=== PATIENT | female | born 1960 | race Caucasian/White ===

== ENCOUNTER → 2024-11-24 07:00 | Outpatient (REF) | payer OTHER, SELFPAY ==
[2024-11-24 07:25] VITALS: BP 95/62; BP_SYST 73
[2024-11-24 09:10] VITALS: BP 101/60; BP_SYST 78
--- NOTE | 2024-11-24 09:12 | PTCARENOTE ---
IRAD note: confirmed with Dr. Romero. no antibiotic needed for Port placement for patient with Allergy to Penicillin.
[2024-11-24 09:15] VITALS: BP 95/56; BP_SYST 77
[2024-11-24 09:20] VITALS: BP 95/58; BP_SYST 75
[2024-11-24 09:30] VITALS: BP 98/60; BP_SYST 77
[2024-11-24 09:45] VITALS: BP 98/60
== END ==
LOC: RADI 07:00
PROVIDERS: ATTENDING PHYSICIAN Internal Medicine Hematology & Oncology
DX: C91.10 Chronic lymphocytic leukemia of B-cell type not having achieved remission (principal)
CPT/HCPCS: 36561; 76937; 77001; 99152; 99153; C1788

== ENCOUNTER → 2024-11-29 10:03 | Outpatient (REF) | payer OTHER, SELFPAY ==
[2024-11-29 10:48] LABS: Hematocrit 26.6 % (37.0-47.0); Mean Corp Hgb Conc. 30.1 g/dL (33.0-37.0); Mean Corpuscular Hgb 33.5 pg (27.0-31.0); Mean Corpuscular Volume 111.3 fL (81.0-99.0); Mean Platelet Volume 9.3 fL (7.4-10.4); Platelet Count 220 10^3/uL (130-400); Red Blood Cell Count 2.39 10^6/uL (4.20-5.40); Red Cell Dist. Width 14.3 % (11.5-14.5); White Blood Cell Count 67.9 10^3/uL (4.8-10.8)
[2024-11-29 11:49] LABS: ALT (SGPT) 30 U/L (0-35); AST (SGOT) 26 U/L (14-36); Albumin 3.7 g/dl (3.5-5.0); Alkaline Phosphatase 64 U/L (38-126); Blood Urea Nitrogen 31 mg/dl (7-17); Calcium 8.8 mg/dl (8.4-10.2); Carbon Dioxide 30 mmol/L (22-30); Chloride 100 mmol/L (98-107); Glucose 89 mg/dl (70-99); Potassium 4.9 mmol/L (3.5-5.1); Sodium 139 mmol/L (135-145); Total Bilirubin 0.5 mg/dl (0.2-1.3); Total Protein 5.3 g/dl (6.3-8.2); Uric Acid 3.4 mg/dl (2.5-6.2); eGFR > 60.00
[2024-11-29 13:21] LABS: % Immature Granulocytes 0.1 % (0-0.5); % Lymphocytes 96.4 % (20.5-51.1); % Monocytes 0.4 % (1.7-9.3); % Neutrophils 3.1 % (42.2-75.2); Absolute Immature Granulocytes 0.1 10^3/uL (0-0.05); Absolute Lymphocytes 65.4 10^3/uL (1.2-3.4); Absolute Monocytes 0.3 10^3/uL (0.1-0.6); Absolute Neutrophils 2.1 10^3/uL (1.4-6.5); Nucleated Red Blood Cells % 0 %
== END ==
LOC: REG 10:03
PROVIDERS: ATTENDING PHYSICIAN Internal Medicine Hematology & Oncology
DX: C91.10 Chronic lymphocytic leukemia of B-cell type not having achieved remission (principal); R59.0 Localized enlarged lymph nodes; D69.59 Other secondary thrombocytopenia; D63.8 Anemia in other chronic diseases classified elsewhere; D68.9 Coagulation defect, unspecified; R16.1 Splenomegaly, not elsewhere classified; R11.0 Nausea; D51.8 Other vitamin B12 deficiency anemias; D80.1 Nonfamilial hypogammaglobulinemia
CPT/HCPCS: 36415; 80053; 84550; 85025

== ENCOUNTER → 2024-12-01 08:35 | Outpatient (REF) | payer OTHER, SELFPAY ==
[2024-12-01 09:11] LABS: ALT (SGPT) 32 U/L (0-35); AST (SGOT) 23 U/L (14-36); Albumin 3.3 g/dl (3.5-5.0); Alkaline Phosphatase 57 U/L (38-126); Blood Urea Nitrogen 28 mg/dl (7-17); Calcium 8.1 mg/dl (8.4-10.2); Carbon Dioxide 27 mmol/L (22-30); Chloride 102 mmol/L (98-107); Glucose 130 mg/dl (70-99); Potassium 4.1 mmol/L (3.5-5.1); Sodium 138 mmol/L (135-145); Total Bilirubin 0.5 mg/dl (0.2-1.3); Total Protein 5.1 g/dl (6.3-8.2); Uric Acid 3.1 mg/dl (2.5-6.2); eGFR > 60.00
[2024-12-01 09:44] LABS: % Immature Granulocytes 0.4 % (0-0.5); % Lymphocytes 74.2 % (20.5-51.1); % Monocytes 0.3 % (1.7-9.3); % Neutrophils 25.1 % (42.2-75.2); Absolute Lymphocytes 5.3 10^3/uL (1.2-3.4); Absolute Neutrophils 1.8 10^3/uL (1.4-6.5); Hemoglobin 7.8 g/dL (12.0-16.0); Mean Corp Hgb Conc. 31.2 g/dL (33.0-37.0); Mean Corpuscular Hgb 35.3 pg (27.0-31.0); Mean Corpuscular Volume 113.1 fL (81.0-99.0); Mean Platelet Volume 9.3 fL (7.4-10.4); Nucleated Red Blood Cells % 0 %; Platelet Count 180 10^3/uL (130-400); Red Blood Cell Count 2.21 10^6/uL (4.20-5.40); Red Cell Dist. Width 15.3 % (11.5-14.5); White Blood Cell Count 7.1 10^3/uL (4.8-10.8)
== END ==
LOC: OIDL 08:35
PROVIDERS: ATTENDING PHYSICIAN Internal Medicine Hematology & Oncology
DX: C91.10 Chronic lymphocytic leukemia of B-cell type not having achieved remission (principal)
CPT/HCPCS: 80053; 84550; 85025

== ENCOUNTER 2024-12-04 07:44 | Outpatient (RCR) | payer OTHER, SELFPAY ==
[2024-11-16 12:39] LABS: Hematocrit 25.8 % (37.0-47.0); Hemoglobin 8.1 g/dL (12.0-16.0); Mean Corp Hgb Conc. 31.4 g/dL (33.0-37.0); Mean Corpuscular Hgb 35.5 pg (27.0-31.0); Mean Corpuscular Volume 113.2 fL (81.0-99.0); Mean Platelet Volume 9.7 fL (7.4-10.4); Platelet Count 219 10^3/uL (130-400); Red Blood Cell Count 2.28 10^6/uL (4.20-5.40); Red Cell Dist. Width 12.6 % (11.5-14.5); White Blood Cell Count 31.4 10^3/uL (4.8-10.8)
[2024-11-16 14:08] LABS: % Basophils 0.2 % (0-2); % Eosinophils 0.2 % (0-6); % Lymphocytes 95.1 % (20.5-51.1); % Neutrophils 3.5 % (42.2-75.2); Absolute Basophils 0.1 10^3/uL (0-0.2); Absolute Eosinophils 0.1 10^3/uL (0-0.7); Absolute Lymphocytes 29.9 10^3/uL (1.2-3.4); Absolute Monocytes 0.3 10^3/uL (0.1-0.6); Absolute Neutrophils 1.1 10^3/uL (1.4-6.5); Nucleated Red Blood Cells % 0.1 %
[2024-11-17 09:44] VITALS: BP 80/41
[2024-11-17 10:26] LABS: ALT (SGPT) 18 U/L (0-35); AST (SGOT) 19 U/L (14-36); Albumin 3.6 g/dl (3.5-5.0); Alkaline Phosphatase 66 U/L (38-126); Blood Urea Nitrogen 21 mg/dl (7-17); Calcium 8.9 mg/dl (8.4-10.2); Carbon Dioxide 26 mmol/L (22-30); Chloride 102 mmol/L (98-107); Glucose 97 mg/dl (70-99); Potassium 4.5 mmol/L (3.5-5.1); Sodium 140 mmol/L (135-145); Total Bilirubin 0.9 mg/dl (0.2-1.3); Total Protein 5.6 g/dl (6.3-8.2); eGFR > 60.00
[2024-11-17 10:55] VITALS: BP 80/41
[2024-11-17] MEDS: TYLENOL 650 MG PO (10:57)
[2024-11-17] MEDS: BENADRYL 25 MG PO (10:57)
[2024-11-17 10:58] LABS: Hepatitis B Surface Antigen Negative (Negative)
[2024-11-17 11:14] VITALS: BP 80/42
[2024-11-17 11:16] LABS: Hepatitis B Core Ab, Total Negative (Negative)
[2024-11-17 12:23] LABS: Hepatitis B Surface Antibody Indeterminate
[2024-11-17 12:58] VITALS: BP 82/47
[2024-12-04] VITALS (7 sets, daily range): BP systolic 86–91; BP diastolic 45–52
[2024-12-04] MEDS: TYLENOL 650 MG PO (08:24)
[2024-12-04] MEDS: BENADRYL 25 MG PO (08:24)
== END 2024-12-08 23:59 | disposition home or self-care (01) ==
LOC: OID 07:44
PROVIDERS: ATTENDING PHYSICIAN Internal Medicine Hematology & Oncology; FAMILY PHYSICIAN Family Medicine
DX: C91.10 Chronic lymphocytic leukemia of B-cell type not having achieved remission (principal)
CPT/HCPCS: 36415; 36430; 80053; 85025; 86704; 86706; 86850; 86900; 86901; 86920; 87340; P9016

== ENCOUNTER → 2024-12-06 09:56 | Outpatient (REF) | payer OTHER, SELFPAY ==
[2024-12-06 12:05] LABS: Absolute Lymphocytes 0.5 10^3/uL (1.2-3.4); Absolute Neutrophils 0.5 10^3/uL (1.4-6.5); Hematocrit 34.5 % (37.0-47.0); Hemoglobin 11.5 g/dL (12.0-16.0); Mean Corp Hgb Conc. 33.3 g/dL (33.0-37.0); Mean Corpuscular Hgb 33.5 pg (27.0-31.0); Mean Corpuscular Volume 100.6 fL (81.0-99.0); Mean Platelet Volume 9.7 fL (7.4-10.4); Nucleated Red Blood Cells % 0 %; Platelet Count 76 10^3/uL (130-400); Red Blood Cell Count 3.43 10^6/uL (4.20-5.40); Red Cell Dist. Width 18.5 % (11.5-14.5)
[2024-12-06 12:49] LABS: ALT (SGPT) 53 U/L (0-35); AST (SGOT) 24 U/L (14-36); Albumin 3.9 g/dl (3.5-5.0); Alkaline Phosphatase 65 U/L (38-126); Blood Urea Nitrogen 20 mg/dl (7-17); Calcium 8.7 mg/dl (8.4-10.2); Carbon Dioxide 28 mmol/L (22-30); Chloride 98 mmol/L (98-107); Glucose 93 mg/dl (70-99); Potassium 4.8 mmol/L (3.5-5.1); Sodium 135 mmol/L (135-145); Total Bilirubin 1.9 mg/dl (0.2-1.3); Total Protein 5.9 g/dl (6.3-8.2); eGFR > 60.00
[2024-12-06 14:15] LABS: Uric Acid 3.3 mg/dl (2.5-6.2)
== END ==
LOC: REG 09:56
PROVIDERS: ATTENDING PHYSICIAN Internal Medicine Hematology & Oncology; FAMILY PHYSICIAN Family Medicine
DX: C91.10 Chronic lymphocytic leukemia of B-cell type not having achieved remission (principal); R59.0 Localized enlarged lymph nodes; D69.59 Other secondary thrombocytopenia; D63.8 Anemia in other chronic diseases classified elsewhere; R16.1 Splenomegaly, not elsewhere classified; R11.0 Nausea; D51.8 Other vitamin B12 deficiency anemias; D80.1 Nonfamilial hypogammaglobulinemia
CPT/HCPCS: 36415; 80053; 84550; 85025

== ENCOUNTER → 2024-12-12 13:22 | Outpatient (REF) | payer OTHER, SELFPAY ==
[2024-12-12 14:56] LABS: ALT (SGPT) 31 U/L (0-35); AST (SGOT) 31 U/L (14-36); Albumin 3.2 g/dl (3.5-5.0); Alkaline Phosphatase 52 U/L (38-126); Blood Urea Nitrogen 22 mg/dl (7-17); Calcium 8.3 mg/dl (8.4-10.2); Carbon Dioxide 25 mmol/L (22-30); Chloride 98 mmol/L (98-107); Glucose 111 mg/dl (70-99); Potassium 4.2 mmol/L (3.5-5.1); Sodium 128 mmol/L (135-145); Total Bilirubin 1.2 mg/dl (0.2-1.3); eGFR > 60.00
[2024-12-12 15:47] LABS: % Eosinophils 3.4 % (0-6); % Lymphocytes 52.9 % (20.5-51.1); % Monocytes 1.1 % (1.7-9.3); % Neutrophils 42.6 % (42.2-75.2); Absolute Lymphocytes 0.5 10^3/uL (1.2-3.4); Absolute Neutrophils 0.4 10^3/uL (1.4-6.5); Hematocrit 26.7 % (37.0-47.0); Hemoglobin 8.7 g/dL (12.0-16.0); Mean Corp Hgb Conc. 32.6 g/dL (33.0-37.0); Mean Corpuscular Volume 101.1 fL (81.0-99.0); Mean Platelet Volume 9.6 fL (7.4-10.4); Nucleated Red Blood Cells % 0 %; Platelet Count 107 10^3/uL (130-400); Red Blood Cell Count 2.64 10^6/uL (4.20-5.40); Red Cell Dist. Width 17.3 % (11.5-14.5); White Blood Cell Count 0.9 10^3/uL (4.8-10.8)
== END ==
LOC: REG 13:22
PROVIDERS: ATTENDING PHYSICIAN Internal Medicine Hematology & Oncology; FAMILY PHYSICIAN Family Medicine
DX: C91.10 Chronic lymphocytic leukemia of B-cell type not having achieved remission (principal); R59.0 Localized enlarged lymph nodes; D69.59 Other secondary thrombocytopenia; D63.8 Anemia in other chronic diseases classified elsewhere; D68.9 Coagulation defect, unspecified; R16.1 Splenomegaly, not elsewhere classified; R11.0 Nausea; D51.8 Other vitamin B12 deficiency anemias; D80.1 Nonfamilial hypogammaglobulinemia
CPT/HCPCS: 36415; 80053; 84550; 85025

== ENCOUNTER → 2024-12-14 12:29 | Outpatient (REF) | payer OTHER, SELFPAY | LOC: RAD 12:29 | PROVIDERS: ATTENDING PHYSICIAN Nurse Practitioner Adult Health; FAMILY PHYSICIAN Family Medicine | DX: C91.10 Chronic lymphocytic leukemia of B-cell type not having achieved remission (principal); R59.0 Localized enlarged lymph nodes; D69.59 Other secondary thrombocytopenia; D63.8 Anemia in other chronic diseases classified elsewhere; D68.9 Coagulation defect, unspecified; R16.1 Splenomegaly, not elsewhere classified; R11.0 Nausea; D51.8 Other vitamin B12 deficiency anemias; D80.1 Nonfamilial hypogammaglobulinemia | CPT/HCPCS: 71046 ==

== ENCOUNTER 2024-12-15 22:37 | Inpatient (IN) | payer OTHER, SELFPAY ==
[2024-12-15 17:29] VITALS: BP 115/65
[2024-12-15] MEDS: TYLENOL 1000 MG PO (17:36)
[2024-12-15] MEDS: NSS 1000 IV (18:24)
[2024-12-15 18:37] LABS: Hematocrit 22.7 % (37.0-47.0); Hemoglobin 7.9 g/dL (12.0-16.0); Mean Corp Hgb Conc. 34.8 g/dL (33.0-37.0); Mean Corpuscular Hgb 33.8 pg (27.0-31.0); Mean Platelet Volume 9.6 fL (7.4-10.4); Platelet Count 129 10^3/uL (130-400); Red Blood Cell Count 2.34 10^6/uL (4.20-5.40); Red Cell Dist. Width 17.2 % (11.5-14.5); White Blood Cell Count 0.6 10^3/uL (4.8-10.8)
[2024-12-15 18:42] LABS: ALT (SGPT) 40 U/L (0-35); AST (SGOT) 32 U/L (14-36); Alkaline Phosphatase 61 U/L (38-126); Blood Urea Nitrogen 19 mg/dl (7-17); Calcium 8.2 mg/dl (8.4-10.2); Carbon Dioxide 21 mmol/L (22-30); Chloride 99 mmol/L (98-107); Glucose 105 mg/dl (70-99); Sodium 129 mmol/L (135-145); Total Bilirubin 1.2 mg/dl (0.2-1.3); Total Protein 4.8 g/dl (6.3-8.2); eGFR > 60.00
[2024-12-15] MEDS: MAXIPIME 2000 MG IV (18:43)
[2024-12-15 18:53] LABS: Procalcitonin < 0.05 ng/ml (0.0-0.25)
[2024-12-15 18:54] LABS: APTT 37.5 Sec (23.4-35.0); Lactic Acid 0.8 mmol/L (0.7-2.0)
[2024-12-15 18:56] VITALS: BP 104/58
[2024-12-15 18:58] VITALS: BMI 24.2
[2024-12-15 19:05] LABS: COVID-19 Antigen Negative (Negative)
[2024-12-15 19:33] LABS: Urine Bilirubin Negative (Negative); Urine Character Clear (Clear); Urine Glucose Negative (Negative); Urine Ketone Negative (Negative); Urine Nitrite Negative (Negative)
--- NOTE | 2024-12-15 19:33 | ED.GENMED ---
History of Present Illness
<Jose Montemayor Jr., PA-C - Last Filed: 12/15/24 21:13>
General
Chief Complaint: Fever
Source: patient and family
Exam Limitations: none
Time Seen by Provider: 12/15/24 18:05
Nursing documentation reviewed up to this point in time: agreed with
History of Present Illness
History of Present Illness:
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 Had an x-ray yesterday that showed some degree of bilateral infiltrates. She denies specific symptoms other
than feeling febrile and weak. Sent in by hematology for antibiotic therapy. Here patient is febrile in no distress other vital signs normal. White count of 0.6 slightly low sodium level 129 also low calcium level. Patient started on
broad-spectrum antibiotics
Review of Systems
<Jose Montemayor Jr., PA-C - Last Filed: 12/15/24 21:13>
Review of Systems
Allergies reviewed?: Yes
All Other Systems: ROS reviewed and negative except as documented in HPI and ROS
Phy Exam
<Jose Montemayor Jr., PA-C - Last Filed: 12/15/24 21:13>
Physical Exam
Physical Exam:
GENERAL: Alert , in no apparent distress
EYE: pupils equal and reactive
NECK: Supple, no significant adenopathy.
ENT: o/p clr, mmm.
CARDIAC: Regular rate and rhythm .
LUNGS: Clear breath sounds bilaterally, no acute respiratory distress, no wheezes/rales/rhonchi
ABDOMEN: Soft, without focal tenderness, no r/g, no cvat
NEUROLOGICAL: Alert and oriented, no focal neuro deficits
SKIN: Warm and dry, skin intact.
MUSCULOSKELETAL: No edema, well perfused.
PSYCH: Normal and appropriate interaction.
Sepsis
<Jose Montemayor Jr., PA-C - Last Filed: 12/15/24 21:13>
Sepsis Screening
Sepsis Assessment: Sepsis Ruled Out
Sepsis Screen
Sepsis Screen: Sepsis Ruled Out
Date: 12/15/24
Time: 21:13
Course
<Jose Montemayor Jr., PA-C - Last Filed: 12/15/24 21:13>
Orders/Labs/Results
Orders:
Orders
12/15/24 17:35
Acetaminophen [Tylenol] 1,000 mg PO NOW STA
Acetaminophen [Tylenol] 500 mg .ROUTE .STK-MED ONE
12/15/24 18:05
0.9% Sodium Chloride 1000 ml [Nss] 1,000 ml IV BOLUS
Cefepime HCl [Maxipime] 2,000 mg IV NOW STA
12/15/24 18:07
Electrocardiogram (*1) Urgent
Reason for Study: Other
Other Reason for Exam: sepsis
EKG- Treatment ONCE
12/15/24 18:18
COVID-19 Antigen Urgent
Source: Nasal Swab
Complete Blood Count/With Diff Urgent
Comprehensive Metabolic Panel Urgent
Lactic Acid Q4H
Comment: CANCEL 2nd LACTIC ACID IF 1st LACTIC ACID IS LESS THAN 2
PTT Urgent
Procalcitonin Urgent
PCT Algorithmm Indication: Respiratory
Blood Culture Q30M
DARREN Source: Blood/Venous
Specimen Description:
Influenza A+B Rapid Molecular Urgent
DARREN Source: Nasal Swab
Specimen Description:
12/15/24 18:38
Blood Culture Q30M
DARREN Source: Blood/Venous
Specimen Description:
12/15/24 19:25
Urinalysis Reflex To Culture Urgent
Date Specimen was Collected: 12/15/24
Time Specimen was Collected: 19:19
Urine Microscopic Reflex Cult Urgent
Urine Culture Urgent
DARREN Source: U
Specimen Description:
Date Specimen was Collected: 12/15/24
Time Specimen was Collected: 19:19
12/15/24 19:41
CT Chest PE Study Urgent
Comment:
Reason For Exam: sob, cancer hx
12/15/24 20:31
Vancomycin [Vancocin] 1,500 mg 0.9% Sodium Chloride 500 ml [Nss] 500 ml IV NOW
12/15/24 22:15
Lactic Acid Q4H
Comment: CANCEL 2nd LACTIC ACID IF 1st LACTIC ACID IS LESS THAN 2
Abnormal Lab Results
12/15/24 12/15/24
18:18 19:25
WBC 0.6 L* 10^3/uL
(4.8-10.8)
RBC 2.34 L 10^6/uL
(4.20-5.40)
Hgb 7.9 L g/dL
(12.0-16.0)
Hct 22.7 L %
(37.0-47.0)
MCH 33.8 H pg
(27.0-31.0)
RDW 17.2 H %
(11.5-14.5)
Plt Count 129 L D 10^3/uL
(130-400)
Absolute Neuts (auto) 0.2 L* 10^3/uL
(1.4-6.5)
Absolute Lymphs (auto) 0.3 L 10^3/uL
(1.2-3.4)
Absolute Monos (auto) 0.0 L 10^3/uL
(0.1-0.6)
Neutrophils % 37.5 L %
(42.2-75.2)
Lymphocytes % 57.1 H %
(20.5-51.1)
APTT 37.5 H Sec
(23.4-35.0)
Sodium 129 L mmol/L
(135-145)
Carbon Dioxide 21 L mmol/L
(22-30)
BUN 19 H mg/dl
(7-17)
Glucose 105 H mg/dl
(70-99)
Calcium 8.2 L mg/dl
(8.4-10.2)
ALT 40 H U/L
(0-35)
Total Protein 4.8 L g/dl
(6.3-8.2)
Albumin 3.0 L g/dl
(3.5-5.0)
Ur Occult Blood Reflex 4+ A
(Negative)
Urine Urobilinogen 2+ A
(Neg - 1+)
Leukocyte Esterase Rfl 1+ A
(Negative)
Urine RBC 16-20 A /HPF
(0-2)
Urine Bacteria (Reflex) Few A
(Negative)
Urine Albumin (Reflex) 2+ A
(Neg - Trace)
12/15/24 18:18
12/15/24 18:18
Vital Signs
Initial and Last Documented VS:
Initial Vital Signs
Temp Pulse Resp BP Pulse Ox
101.2 F H 97 16 115/65 98
12/15/24 17:29 12/15/24 17:29 12/15/24 17:29 12/15/24 17:29 12/15/24 17:29
Last Documented Vital Signs
Temp Pulse Resp BP Pulse Ox
98.7 F 84 17 104/58 97
12/15/24 19:45 12/15/24 18:56 12/15/24 18:56 12/15/24 18:56 12/15/24 18:56
<Donell Vásquez MD - Last Filed: 12/15/24 19:52>
Orders/Labs/Results
Orders:
Orders
12/15/24 17:35
Acetaminophen [Tylenol] 1,000 mg PO NOW STA
Acetaminophen [Tylenol] 500 mg .ROUTE .STK-MED ONE
12/15/24 18:05
0.9% Sodium Chloride 1000 ml [Nss] 1,000 ml IV BOLUS
Cefepime HCl [Maxipime] 2,000 mg IV NOW STA
12/15/24 18:07
Electrocardiogram (*1) Urgent
Reason for Study: Other
Other Reason for Exam: sepsis
EKG- Treatment ONCE
12/15/24 18:18
COVID-19 Antigen Urgent
Source: Nasal Swab
Complete Blood Count/With Diff Urgent
Comprehensive Metabolic Panel Urgent
Lactic Acid Q4H
Comment: CANCEL 2nd LACTIC ACID IF 1st LACTIC ACID IS LESS THAN 2
PTT Urgent
Procalcitonin Urgent
PCT Algorithmm Indication: Respiratory
Blood Culture Q30M
DARREN Source: Blood/Venous
Specimen Description:
Influenza A+B Rapid Molecular Urgent
DARREN Source: Nasal Swab
Specimen Description:
12/15/24 18:38
Blood Culture Q30M
DARREN Source: Blood/Venous
Specimen Description:
12/15/24 19:25
Urinalysis Reflex To Culture Urgent
Date Specimen was Collected: 12/15/24
Time Specimen was Collected: 19:19
Urine Microscopic Reflex Cult Urgent
Urine Culture Urgent
DARREN Source: U
Specimen Description:
Date Specimen was Collected: 12/15/24
Time Specimen was Collected: 19:19
12/15/24 19:41
CT Chest PE Study Urgent
Comment:
Reason For Exam: sob, cancer hx
12/15/24 20:31
Vancomycin [Vancocin] 1,500 mg 0.9% Sodium Chloride 500 ml [Nss] 500 ml IV NOW
12/15/24 22:15
Lactic Acid Q4H
Comment: CANCEL 2nd LACTIC ACID IF 1st LACTIC ACID IS LESS THAN 2
Abnormal Lab Results
12/15/24 12/15/24
18:18 19:25
WBC 0.6 L* 10^3/uL
(4.8-10.8)
RBC 2.34 L 10^6/uL
(4.20-5.40)
Hgb 7.9 L g/dL
(12.0-16.0)
Hct 22.7 L %
(37.0-47.0)
MCH 33.8 H pg
(27.0-31.0)
RDW 17.2 H %
(11.5-14.5)
Plt Count 129 L D 10^3/uL
(130-400)
Absolute Neuts (auto) 0.2 L* 10^3/uL
(1.4-6.5)
Absolute Lymphs (auto) 0.3 L 10^3/uL
(1.2-3.4)
Absolute Monos (auto) 0.0 L 10^3/uL
(0.1-0.6)
Neutrophils % 37.5 L %
(42.2-75.2)
Lymphocytes % 57.1 H %
(20.5-51.1)
APTT 37.5 H Sec
(23.4-35.0)
Sodium 129 L mmol/L
(135-145)
Carbon Dioxide 21 L mmol/L
(22-30)
BUN 19 H mg/dl
(7-17)
Glucose 105 H mg/dl
(70-99)
Calcium 8.2 L mg/dl
(8.4-10.2)
ALT 40 H U/L
(0-35)
Total Protein 4.8 L g/dl
(6.3-8.2)
Albumin 3.0 L g/dl
(3.5-5.0)
Ur Occult Blood Reflex 4+ A
(Negative)
Urine Urobilinogen 2+ A
(Neg - 1+)
Leukocyte Esterase Rfl 1+ A
(Negative)
Urine RBC 16-20 A /HPF
(0-2)
Urine Bacteria (Reflex) Few A
(Negative)
Urine Albumin (Reflex) 2+ A
(Neg - Trace)
12/15/24 18:18
12/15/24 18:18
Vital Signs
Initial and Last Documented VS:
Initial Vital Signs
Temp Pulse Resp BP Pulse Ox
101.2 F H 97 16 115/65 98
12/15/24 17:29 12/15/24 17:29 12/15/24 17:29 12/15/24 17:29 12/15/24 17:29
Last Documented Vital Signs
Temp Pulse Resp BP Pulse Ox
98.7 F 84 17 104/58 97
12/15/24 19:45 12/15/24 18:56 12/15/24 18:56 12/15/24 18:56 12/15/24 18:56
<Jose Montemayor Jr., PA-C - Last Filed: 12/15/24 21:13>
MDM/Problems Addressed
MDM/Problems Addressed:
64-year-old female presenting to the emergency department today with concerns of fever starting yesterday. An outpatient x-ray with concerning features of potential pneumonia. 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
immunocompromise state with CLL. Here she generally well-appearing with normal vital signs other than her elevated temperature. Was given Tylenol started on IV antibiotics blood cultures urine culture sent. CTA performed of the chest concern she
does have some shortness of breath. This showed findings potentially consistent with pneumonia no evidence of PE. Plan to admit for further monitoring.
<Jose Montemayor Jr., PA-C - Last Filed: 12/15/24 21:13>
*Critical Care Note
Total Time (30-74mins, 75-104mins- exclusive of procedures): Not Applicable
ED Attending Note
<Jose Montemayor Jr., PA-C - Last Filed: 12/15/24 21:13>
-
Portions of this chart may have been created with voice recognition software.� Occasional wrong word or��sound alike� substitutions may have occurred due to the inherent limitations of voice recognition software.
<Donell Vásquez MD - Last Filed: 12/15/24 19:52>
ED Attending Note
Patient seen and examined by attending physician: Yes
I performed the substantive portion of visit, reviewed & personally made and approve the management plan that is documented in note by myself or KARAN.: Yes
ED Attending Note:
64-year-old female with a history of CLL presents with shortness of breath starting 2 to 3 days ago. Did respond to her home inhaler. Fevers. Some achiness. No pleuritic pain abdominal pain urinary symptoms etc.
On exam patient is nontoxic in no distress. Warm and dry. Perfusing well. Lungs are clear. Heart regular rate and rhythm. Port right upper chest wall appears normal. Abdomen soft and nontender. Warm and dry. Grossly nonfocal.
Impression is neutropenia ongoing fever. She has having some pain at her port site although it appears within normal limits. We will get a CT perfusion for her shortness of breath. Admit for IV antibiotics pending cultures.
Discharge Plan
Departure
Patient Disposition: Admit
Date of Disposition: 12/15/24
Time of Disposition: 21:04
Admit to: Med/Surg
Admit to doctor: Dlyan
Presentation/result/management discussed w/ accepting MD/DO: Hospitalist
Patient with high blood pressure during this ER visit?: No
Condition: Good
Covid-19: Not Applicable
Discharge Problem:
Chronic lymphocytic leukemia, Neutropenia, Fever, Pneumonia
Prescriptions:
No Action
atorvastatin [Lipitor] 40 mg Tablet
40 mg PO HS
cyanocobalamin (vitamin B-12) [Vitamin B-12] 2,500 mcg Tablet, Sublingual
2,500 mcg SUBLINGUAL DAILY
carvedilol 3.125 mg Tablet
3.125 mg PO BID
levothyroxine [Synthroid] 88 mcg Tablet
88 mcg PO DAILY
sertraline 25 mg Tablet
25 mg PO HS
albuterol sulfate [ProAir HFA] 90 mcg/actuation Hfa Aerosol Inhaler
2 puff INHALATION R Q6HPRN PRN (Reason: asthma)
allopurinol 300 mg Tablet
300 mg PO DAILY
acetaminophen [Tylenol] 325 mg Tablet
650 mg PO Q6HPRN PRN (Reason: mild pain)
aspirin 81 mg Tablet,Delayed Release (Dr/Ec)
81 mg PO DAILY
fluticasone furoate-vilanterol [Breo Ellipta] 100-25 mcg/dose Blister With Device
1 inh INHALATION R DAILYPRN PRN (Reason: sob)
levofloxacin 500 mg Tablet
500 mg PO DAILY
Patient Comments:
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
Interventions
Interventions:
*Risk Screen - Suicide Last Done: 12/15/24 17:32
*General Assessment Last Done: 12/15/24 18:47
*Neglect/Abuse Screening Last Done: 12/15/24 17:32
ED- Fall Risk Assessment Last Done: 12/15/24 18:49
*ED COVID-19 Vaccine History Last Done: 12/15/24 18:47
ED- Neurological Assessment Last Done: 12/15/24 19:22
ED-Skin Assessment Last Done: 12/15/24 18:50
Discharge Date and Time
Print Language: SYRIAC
[2024-12-15 20:02] LABS: % Eosinophils 3.6 % (0-6); % Lymphocytes 57.1 % (20.5-51.1); % Monocytes 1.8 % (1.7-9.3); % Neutrophils 37.5 % (42.2-75.2); Absolute Lymphocytes 0.3 10^3/uL (1.2-3.4); Absolute Neutrophils 0.2 10^3/uL (1.4-6.5); Nucleated Red Blood Cells % 0 %
[2024-12-15 20:14] LABS: Urine Red Blood Cell 16-20 /HPF (0-2); Urine Squamous Cell 21-25 /LPF (Few)
[2024-12-15 20:15] LABS: Urine Bacteria Few (Negative)
[2024-12-15 20:29] LABS: Urine Color Amber
[2024-12-15 20:30] LABS: Urine Albumin 2+ (Neg - Trace); Urine Leukocyte 1+ (Negative); Urine Occult Blood 4+ (Negative); Urine Specific Gravity 1.015 (<1.030); Urine Urobilinogen 2+ (Neg - 1+)
[2024-12-15] MEDS: VANCOCIN 530 MG IV (20:59)
--- NOTE | 2024-12-15 21:06 | HPS.HSE ---
Addendum entered and electronically signed by Callum Richardson DO 12/15/24 23:10:
Patient seen and examined independently. Agree with findings and plan as set forth by JOCELIN Espitia.
Patient is a 64y F with PMH significant for CLL having recently started targeted immunotherapy (3 weeks ago) who presents to ED complaining of recent fevers at home. Patient reports some increased SOB 2 days ago - better with use of her rescue
inhaler. She noted intermittent fevers at home - max of 101. Intermittent nausea without emesis - mostly after eating. No other focal complaints. No cough. No known sick contacts.
Patient had CXR done as an outpatient yesterday and was started on levofloxacin for findings of multifocal pneumonia. Today she had another fever and presented to the ED for evaluation.
Ass:
Neutropenic Fever
Multifocal Pneumonia
CLL on Immunotherapy
ASCVD
Benign Hypertension
Hypothyroidism
Asthma
Depression
Plan:
Admit for further evaluation and treatment.
Continue abx with Vanco / Zosyn for now.
Neutropenic precautions.
Follow fever curve, culture data, cell counts / ANC, etc.
ID and Hematology evaluations for additional recommendations.
Continue other outpatient medications.
Monitor for any new / worsening symptoms.
Original Note:
Family Physician
-
Family Physician:
Chief Complaint
-
fever
History of Present Illness
Patient is a 64-year-old female with past medical history significant for CLL, hypothyroidism, hyperlipidemia, hypertension, asthma, and depression who presented to [facility] for evaluation of fever. Patient states that she started with
increased intermittent shortness of breath on Wednesday that resolved with use of inhaler. Yesterday she then started with intermittent fever with a T max of 101. She states she has felt nauseous intermittently. She denies any chills, cough, chest
pain, vomiting, constipation, diarrhea and urinary.
Medical History
Past Medical History
Past Medical History: Reports Other
Additional Past Medical History:
CLL
hypothyroidism
hyperlipidemia
hypertension
asthma
depression
Hx ME with sent placement
Past Surgical History: Reports Other
Additional Past Surgical History:
tonsillectomy
salpingostomy
appendectomy
cardiac stent
Social History
Tobacco: Non-smoker
Alcohol: None
Drug: None
Personal:
Living: With Family
Employment: Not Employed
Family History
Family History: Not pertinent
Allergies / Home Medications
Allergies reflects when Allergies were last updated in [email or web address].
Home Medications with original date entered in [email or web address]
Allergy/Medication List:
Allergies
Allergy/AdvReac Type Severity Reaction Status Date / Time
Penicillins Allergy Hives Verified 12/15/24 20:29
shrimp Allergy Hives Verified 12/15/24 17:32
Home Medications
albuterol sulfate 90 mcg/actuation aerosol inhaler 2 puff inhalation R Q6HPRN PRN asthma 11/17/24
atorvastatin 40 mg tablet (Lipitor) 40 mg PO HS 11/17/24
carvedilol 3.125 mg tablet 3.125 mg PO BID 11/17/24
cyanocobalamin (vitamin B-12) 2,500 mcg sublingual tablet (Vitamin B-12) 2,500 mcg sublingual DAILY 11/17/24
levothyroxine 88 mcg tablet (Synthroid) 88 mcg PO DAILY 11/17/24
sertraline 25 mg tablet 25 mg PO HS 11/17/24
allopurinol 300 mg tablet 300 mg PO DAILY 12/04/24
acetaminophen 325 mg tablet (Tylenol) 650 mg PO Q6HPRN PRN mild pain 12/15/24
aspirin 81 mg tablet,delayed release 81 mg PO DAILY 12/15/24
fluticasone furoate 100 mcg-vilanterol 25 mcg/dose inhalation powder (Breo Ellipta) 1 inh inhalation R DAILYPRN PRN sob 12/15/24
levofloxacin 500 mg tablet 500 mg PO DAILY 12/15/24
Review of Systems
-
History Source: Patient
Constitutional: Reports No Symptoms
EENT: Reports No Symptoms
Respiratory: Reports Other (intermittent shortness of breath )
Cardiac: Reports No Symptoms
Abdomen/GI: Reports Nausea
: Reports No Symptoms
Musculoskeletal: Reports No Symptoms
Skin: Reports No Symptoms
Neurological: Reports No Symptoms
Endocrine: Reports No Symptoms
Hematologic/Lymphatic: Reports No Symptoms
Psych: Reports No Symptoms
Physical Exam
Vital Signs
Vital Signs
Temp Pulse Resp BP Pulse Ox
98.7 F 84 17 104/58 97
12/15/24 19:45 12/15/24 18:56 12/15/24 18:56 12/15/24 18:56 12/15/24 18:56
Physical Exam
General: Well Developed, Well Nourished, No Apparent Distress, Comfortable and Conversant
HEENT: NormoCephalic, Moist mucous membranes, Atraumatic, [place] Conjunctivae, Nose Appears Normal and Ears Appear Normal
Respiratory: Clear and Non Labored Respirations
Cardiac: S1/S2 and Regular Rhythm; No Murmur, Rub or Gallop
Breast: Deferred by me
GI: Soft, Non Tender, Non Distended and Normal Bowel Sounds; No Organomegaly
Rectal: Deferred by Provider
Genito-urinary: Deferred by me
Musculoskeletal: No Clubbing, No Cyanosis and No Edema
Skin: Warm and IV/Catheter Site; No Rash
Neuro: Awake, Alert, AO x 3 and Nonfocal/grossly intact
Psych: Calm and Intact Judgment/Insight
Laboratory Results
-
12/15/24 18:18
12/15/24 18:18
Laboratory Results
APTT 37.5 Sec (23.4-35.0) H 12/15/24 18:18
Lactic Acid 0.8 mmol/L (0.7-2.0) 12/15/24 18:18
Total Bilirubin 1.2 mg/dl (0.2-1.3) 12/15/24 18:18
AST 32 U/L (14-36) 12/15/24 18:18
ALT 40 U/L (0-35) H 12/15/24 18:18
Alkaline Phosphatase 61 U/L (38-126) 12/15/24 18:18
Data Reviewed
-
CT Scan: Report Reviewed by me (Chest: No CTA evidence for an acute pulmonary thromboembolism. Diffuse bilateral patchy pulmonary parenchymal and reticulonodular opacities concerning for pneumonia or other atypical infectious process.)
Medical Tests (Nuc Med, Echo, EKG etc): Report Reviewed by me (EKG: NORMAL SINUS RHYTHM)
Lab Data: Labs Reviewed by me (WBC 0.6, Hgb 7.9, Hct 22.7, Na+ 129, )
Impression/Plan
-
IMPRESSION/PLAN:
#neutropenic fever
WBC 0.[address]: No CTA evidence for an acute pulmonary thromboembolism.
Diffuse bilateral patchy pulmonary parenchymal and reticulonodular opacities concerning for pneumonia or other atypical infectious process.
UA: does not appear to be UTI
Urine Cx: pending
Influenza & Covid: negative
- admit to med/surg
- IV Vanco and Cefepime
- supportive care
- consult ID
#CLL
follows with [place]
#hypothyroidism
- continue hypothyroidism
#hyperlipidemia
- continue atorvastatin
#hypertension
- continue carvedilol
#asthma
- continue Breo Ellipta
#depression
- continue sertraline
#Hx ME with sent placement
- continue aspirin
Code status: Full code
DVT prophylaxis: SCDs
[2024-12-15 21:31] LABS: Lactic Acid < 0.5 mmol/L (0.7-2.0)
[2024-12-15 22:34] VITALS: BP 90/57
[2024-12-15 23:50] VITALS: BP 92/59
[2024-12-15 23:57] VITALS: BMI 20.5
[2024-12-15] MEDS: LIPITOR PO (23:59)
[2024-12-15] MEDS: ZOLOFT PO (23:59)
[2024-12-16] MEDS: MAXIPIME 2000 MG IV ×3 (01:54→17:54)
[2024-12-16] MEDS: STERILE WATER FOR INJECTION 10 ML IV ×3 (01:55→17:54)
--- NOTE | 2024-12-16 04:49 | CON.ONC ---
Impression
Impression
Progressive stage 0 CLL s/p C1 d1/2 obinutuzumab /(venetoclax)
Plan
Plan
transfuse irradiated /leudodepleted pRBCs as clinically indicated-- maintain antibiotics pending recovery CBC --CSF ordered--daily CBC-- d/c allopurinol ( no further risk CTS)
Patient History
History of Present Illness
64-year-old white female with a 10+ year history of stage 0 CLL w/ favorable cytogenetics ( del 13q14) noted only for elevated lymphocytosis without anemia or thrombocytopenia transferred care to Dr. Álavrez for which she maintained observation.
She noted recurrent sinopulmonary infections over the prior year as well as progressive anemia and thrombocytopenia. CT scans of the chest abdomen and pelvis performed in July 2024 noted mild splenomegaly with nonspecific upper abdominal
adenopathy and mild bronchiolitis. She was evaluated for a second opinion at the [facility] for which bone marrow biopsy was recommended w/ subsequent initiation of venetoclax/obinutuzumab given progression of splenomegaly and
doubling of lymphocytosis <6months and B symptoms. BMBX 09/15/2024 noted 60% normocellular marrow involved by 95% CLL w/o cytogenetic or molecular progression. She received initial split dose over 2 days beginning 11/30/2024. She was scheduled for
day 8 therapy when she was found to be neutropenic for which day 8 therapy was withheld. She subsequently developed fever to 101 prompting ER evaluation and admission.
Past-Medical/Surgical History
asthma/CAD s/p stent/hypothyroid
Patient Medication
�Medication �Instructions �Recorded �Confirmed �Last Taken �Type
albuterol sulfate 90 mcg/actuation 2 puff inhalation R Q6HPRN PRN 11/17/24 12/15/24 Unknown History
aerosol inhaler asthma
atorvastatin 40 mg tablet (Lipitor) 40 mg PO HS 11/17/24 12/15/24 12/14/24 History
carvedilol 3.125 mg tablet 3.125 mg PO BID 01/09/0112/15/24 12/15/24 History
cyanocobalamin (vitamin B-12) 2,500 mcg sublingual DAILY 11/17/24 12/15/24 12/15/24 History
2,500 mcg sublingual tablet
(Vitamin B-12)
levothyroxine 88 mcg tablet 88 mcg PO DAILY 11/17/24 12/15/24 12/15/24 History
(Synthroid)
sertraline 25 mg tablet 25 mg PO HS 11/17/24 12/15/24 12/14/24 History
allopurinol 300 mg tablet 300 mg PO DAILY 12/04/24 12/15/24 12/15/24 History
acetaminophen 325 mg tablet 650 mg PO Q6HPRN PRN mild pain 12/15/24 12/15/24 Unknown History
(Tylenol)
aspirin 81 mg tablet,delayed 81 mg PO DAILY 12/15/24 12/15/24 12/15/24 History
release
fluticasone furoate 100 1 inh inhalation R DAILYPRN PRN sob 12/15/24 12/15/24 Unknown History
mcg-vilanterol 25 mcg/dose
inhalation powder (Breo Ellipta)
levofloxacin 500 mg tablet 500 mg PO DAILY 12/15/24 12/15/24 12/15/24 History
Active Medications
Generic Name Dose Route Start Last Admin
Trade Name Freq PRN Reason Stop Dose Admin
Acetaminophen 650 mg 12/16/24 04:36
Acetaminophen 325 Mg Tablet PO 01/13/25 04:35
Q6HPRN PRN
mild pain/ fever>100.5F
Albuterol 2 puff 12/15/24 23:41
Albuterol Hfa [90 Mcg/Dose] Inhaler INH
R Q6HPRN PRN
asthma
Protocol
Allopurinol 300 mg 12/16/24 08:00
Allopurinol 300 Mg Tablet PO 01/13/25 07:59
DAILY NAJMA
Aspirin 81 mg 12/16/24 08:00
Aspirin 81 Mg (Enteric Coated) Tablet PO 01/13/25 07:59
DAILY NAJMA
Atorvastatin Calcium 40 mg 12/15/24 23:41 12/15/24 23:59
Atorvastatin (Lipitor) 40 Mg Tablet PO 01/12/25 23:40 Not Given
HS NAJMA
Budesonide/Formoterol Fumarate 2 puff 12/15/24 23:48
Symbicort Inhaler 80/4.5 INH 01/12/25 23:47
R BIDPRN PRN
sob
Carvedilol 3.125 mg 12/16/24 08:00
Carvedilol 3.125 Mg Tablet PO 01/13/25 07:59
BID NAJMA
Cefepime HCl 2,000 mg 12/16/24 02:00 12/16/24 01:54
Cefepime Hcl 2,000 Mg/12.5 Ml Vial IV 2,000 mg
Q8H NAJMA Administration
Cyanocobalamin 2,500 mcg 12/16/24 08:00
Cyanocobalamin 1,000 Mcg Tablet PO 01/13/25 07:59
DAILY NAJMA
Vancomycin HCl 1 each/ Device 0 mls @ 0 mls/hr 12/15/24 23:41
IV
PER PROTOCOL NAJMA
As Directed
Levothyroxine Sodium 88 mcg 12/16/24 06:00
Levothyroxine 88 Mcg Tablet PO 01/13/25 05:59
DAILY @ 0600 NAJMA
Sertraline HCl 25 mg 12/15/24 23:41 12/15/24 23:59
Sertraline 25 Mg Tablet PO 01/12/25 23:40 Not Given
HS NAJMA
Sodium Chloride 0 flush 12/15/24 23:00
Sodium Chloride 0.9% (Flush) Syringe IV 01/12/25 22:59
PER PROTOCOL NAJMA
Sterile Water 10 ml 12/16/24 02:00 12/16/24 01:55
Sterile Water For Injection 10 Ml Vial IV 01/13/25 01:59 10 ml
Q8H NAJMA Administration
Review of Systems
-
History Source: Patient
All Other Systems: Reviewed and Negative
Physical Exam
-
General: Well Developed and No Apparent Distress
HEENT: Moist Mucous Membranes
Cardiology: Normal Sinus Rhythm
Pulmonary: Clear
GI: Soft and Normal Bowel Sounds
Musculoskeletal: No Clubbing, No Cyanosis and No Edema
Extremities: Pulses Present
Neurology: Non Focal
Hematologic / Lymphatic: Lymphadenopathy
Psych: Calm
Labs
Lab Results
WBC 0.6 10^3/uL (4.8-10.8) L* 12/15/24 18:18
RBC 2.34 10^6/uL (4.20-5.40) L 12/15/24 18:18
Hgb 7.9 g/dL (12.0-16.0) L 12/15/24 18:18
Hct 22.7 % (37.0-47.0) L 12/15/24 18:18
MCV 97.0 fL (81.0-99.0) 12/15/24 18:18
MCH 33.8 pg (27.0-31.0) H 12/15/24 18:18
MCHC 34.8 g/dL (33.0-37.0) 12/15/24 18:18
RDW 17.2 % (11.5-14.5) H 12/15/24 18:18
Plt Count 129 10^3/uL (130-400) L D 12/15/24 18:18
MPV 9.6 fL (7.4-10.4) 12/15/24 18:18
Abs Immat Gran (auto) 0.0 10^3/uL (0-0.05) 12/15/24 18:18
Absolute Neuts (auto) 0.2 10^3/uL (1.4-6.5) L* 12/15/24 18:18
Absolute Lymphs (auto) 0.3 10^3/uL (1.2-3.4) L 12/15/24 18:18
Absolute Monos (auto) 0.0 10^3/uL (0.1-0.6) L 12/15/24 18:18
Absolute Eos (auto) 0.0 10^3/uL (0-0.7) 12/15/24 18:18
Absolute Basos (auto) 0.0 10^3/uL (0-0.2) 12/15/24 18:18
Immature Gran % 0.0 % (0-0.5) 12/15/24 18:18
Neutrophils % 37.5 % (42.2-75.2) L 12/15/24 18:18
Lymphocytes % 57.1 % (20.5-51.1) H 12/15/24 18:18
Monocytes % 1.8 % (1.7-9.3) 12/15/24 18:18
Eosinophils % 3.6 % (0-6) 12/15/24 18:18
Basophils % 0.0 % (0-2) 12/15/24 18:18
Creatinine 0.6 mg/dL (0.6-1.0) 12/15/24 18:18
Vital Signs
Vital Signs
Temp Pulse Resp BP Pulse Ox
98.3 F 81 18 90/57 97
12/16/24 02:26 12/15/24 22:34 12/15/24 22:34 12/15/24 22:34 12/15/24 22:34
[2024-12-16] MEDS: TYLENOL 650 MG PO ×2 (04:54→23:46)
[2024-12-16 05:23] LABS: Hematocrit 19.4 % (37.0-47.0); Hemoglobin 6.7 g/dL (12.0-16.0); Mean Corp Hgb Conc. 34.5 g/dL (33.0-37.0); Mean Corpuscular Hgb 33.8 pg (27.0-31.0); Mean Platelet Volume 9.7 fL (7.4-10.4); Platelet Count 112 10^3/uL (130-400); Red Blood Cell Count 1.98 10^6/uL (4.20-5.40); Red Cell Dist. Width 17.2 % (11.5-14.5); White Blood Cell Count 0.5 10^3/uL (4.8-10.8)
[2024-12-16 05:32] LABS: ALT (SGPT) 29 U/L (0-35); AST (SGOT) 25 U/L (14-36); Albumin 2.1 g/dl (3.5-5.0); Alkaline Phosphatase 47 U/L (38-126); Blood Urea Nitrogen 16 mg/dl (7-17); Calcium 7.4 mg/dl (8.4-10.2); Carbon Dioxide 23 mmol/L (22-30); Chloride 108 mmol/L (98-107); Estimated Creatinine Clearance 85 ml/min; Glucose 106 mg/dl (70-99); Potassium 3.7 mmol/L (3.5-5.1); Sodium 135 mmol/L (135-145); Total Bilirubin 0.7 mg/dl (0.2-1.3); eGFR > 60.00
[2024-12-16] MEDS: SYNTHROID 88 MCG PO (05:34)
--- NOTE | 2024-12-16 06:21 | W.PN.UPDATE ---
Update Note
Progress Note Update
Hgb 6.7/19.4, Type and screen ordered. Patient seen Consent obtained. states she felt slight dizzy and SOB in the bathroom. BP soft 90's/ 59 81, 18, 97%. Fall precautions advised. will order 1 unit PRBC's.
--- NOTE | 2024-12-16 07:20 | PHA.VAN.IN ---
Assessment
- Assessment
Renal Function: Appears similar to baseline
Maximum Temperature: 101.2 - 12/15/24 17:29
Concomitant Antimicrobials: cefepime
AUC Dosing Plan
- Dosing Variables
Dosing Weight (kg): 56
Dosing CrCl (ml/min): 85
Vd coefficient (L/kg): 0.7
- Empiric Dosing
Initial / Loading Dose: 1500 mg - given 12/15/24 ~2100
Maintenance Regimen: 750 mg q12h to start AM 12/16/24
Estimated AUC (mcg*h/mL): 530
Estimated Peak (mcg*h/mL): 32.3
Estimated Trough (mcg/ml): 14.1
Estimated Half Life (H): 9.2
- Monitoring
No levels ordered at this time: consider levels after evening dose Wednesday
Pharmacokinetics Vancomycin I
- -
Patient Age: 64
Patient Sex: Female
Vancomycin Day #: 1
Indication: Pulmonary/Respiratory
Requesting Provider: Dmitriy
Pertinent Antimicrobial Allergies:
Penicillins ->hives
Height / Weight:
Height 5 ft 5 in
Actual Weight 55.973 kg
Pertinent Past Medical History: CLL on targeted immunotherapy
- Vital Signs / Lab Results
Temp Pulse Resp BP Pulse Ox
98.3 F 81 18 92/59 97
12/16/24 02:26 12/15/24 22:34 12/15/24 22:34 12/15/24 23:50 12/15/24 22:34
Lab Results - Hematology
12/15/24 12/16/24
18:18 04:55
WBC 0.6 L* 0.5 L*
Lab Results - Chemistry
12/15/24 12/16/24
18:18 04:55
BUN 19 H 16
Creatinine 0.6 0.6
Estimated Creat Clear 85
Albumin 3.0 L 2.1 L
12/15/24 12/15/24
18:18 20:57
Lactic Acid 0.8 < 0.5 L
Lab Results - Urine
12/15/24
19:25
Urine Nitrite (Reflex) Negative
Leukocyte Esterase Rfl 1+ A
Urine WBC (Reflex) 3-5
Ur Squamous Epith Cells 21-25
Urine Bacteria (Reflex) Few A
Microbiology Results
12/15/24 18:18 Influenza Types A & B ([facility]) - Final
Nasal Swab Negative for Influenza A & B, NAAT
Negative results must be combined with clinical observations
and patient history.
Nucleic Acid Amplification test (NAAT)performed on the
[employer] platform.
[2024-12-16 08:09] VITALS: BP 102/69
[2024-12-16] MEDS: ASPIR LOW (ENTERIC COATED) 81 MG PO (08:11)
[2024-12-16] MEDS: VANCOCIN 150 IV ×2 (08:12→17:54)
[2024-12-16] MEDS: VITAMIN B-12 2500 MCG PO (08:12)
[2024-12-16] MEDS: COREG 3.125 MG PO ×2 (08:12→19:45)
[2024-12-16] MEDS: ZYLOPRIM 300 MG PO (08:13)
--- NOTE | 2024-12-16 09:44 | CON.ID ---
Consultation
-
Date/Time Consultation Requested: December 15, 2024 5521
Date/Time Consultation Performed: December 16, 2024 0266
Requesting Provider: JOCELIN Espitia
Performing Provider: Dr. Jessica Beverly
Reason for Consultation: Neutropenic fever, pneumonia
Chief Complaint / Past History
Chief Complaint
Fever
History of Present Illness
64F hx of HTN, CAD, asthma, CLL received first dose venetoclax/obinutuzumab on 11/30/24 then developed neutropenia. On Wednesday she had significant shortness of breath for which she took inhalers that evening with resolution of the shortness of
breath. However the next day she had fever and chills up to 101. She came to the ED yesterday. Temperature 101.2, absolute neutrophil count 200. Chest CT showed diffuse bilateral patchy pulm parenchymal and reticulonodular opacities. She is
currently on cefepime and vancomycin. Patient reports no cough. Shortness of breath is mild with activity. No runny nose or sore throat. No headache. Positive mild nausea without vomiting, abdominal pain or diarrhea. No urine symptoms. No
back pain. No rash. No ill contacts. No recent travel. No pets. 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
Past History
Additional Past Medical History:
CLL, started venetoclax/obinutuzumab 11/30/24
Hypertension
Hypothyroidism
Asthma
CAD status post stent
Port placement 11/2024
Appendectomy
Allergy History:
Penicillins Allergy (Verified 12/15/24 20:29)
Hives
shrimp Allergy (Verified 12/15/24 17:32)
Hives
Medications Reviewed: Yes
Current Antibiotics:
Vancomycin
Cefepime
Social History
Tobacco: Non-Smoker
Alcohol: None
Drug: None
Personal:
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
Family History
Family History: Not Pertinent
Review of Systems
Review of Systems
General: Fever, Chills and Change in Appetite
HEENT: Negative Stiff Neck, Sinus Problems, Headache or Pharyngitis
Cardiovascular: Negative Chest Pain
Respiratory: Negative Cough or Sputum Production
Gasteroenterology: Nausea; Negative Vomiting or Diarrhea
Genital / Urological: Negative Dysuria or Flank Pain
Endocrine: Weakness
Skin / Hair / Nails: Negative Rash
Neurological: Negative Dizziness
All systems: All other systems were reviewed and were negative
Vital Signs
Temp Pulse Resp BP Pulse Ox
98.5 F 86 17 102/59 99
12/16/24 08:11 12/16/24 09:15 12/16/24 09:15 12/16/24 08:12 12/16/24 08:11
Selected Entries
12/15/24
17:29
Temp 101.2 F H
Physical Exam
Physical Exam
Constitutional: No Acute Distress and Comfortable
Head: Other (No frontal or maxillary sinus tenderness)
Eyes: No Conjunctival Hemorrhage and Sclera Anicteric
Pharynx: Benign
Cardiovascular: Regular Rate and S1/S2
Pulmonary: Coarse (mild coarse BS left base)
Gastrointestinal: Soft, Non Tender, Non Distended and Normal Bowel Sounds
Genito-Urinary: Negative Suprapubic Tenderness or CVA Tenderness
Extremities: Negative Edema
Musculoskeletal: Negative Spinal Tenderness
Skin: Negative Rash
Neurological: AO x 3
Lines: Port (RCW no erythema/induration)
Lab / Diagnostic Study Results
12/16/24 04:55
12/16/24 04:55
Abs Immat Gran (auto) 0.0 10^3/uL (0-0.05) 12/15/24 18:18
Absolute Neuts (auto) 0.2 10^3/uL (1.4-6.5) L* 12/15/24 18:18
Absolute Lymphs (auto) 0.3 10^3/uL (1.2-3.4) L 12/15/24 18:18
Absolute Monos (auto) 0.0 10^3/uL (0.1-0.6) L 12/15/24 18:18
Absolute Basos (auto) 0.0 10^3/uL (0-0.2) 12/15/24 18:18
Immature Gran % 0.0 % (0-0.5) 12/15/24 18:18
Neutrophils % 37.5 % (42.2-75.2) L 12/15/24 18:18
Lymphocytes % 57.1 % (20.5-51.1) H 12/15/24 18:18
Monocytes % 1.8 % (1.7-9.3) 12/15/24 18:18
Eosinophils % 3.6 % (0-6) 12/15/24 18:18
Basophils % 0.0 % (0-2) 12/15/24 18:18
Lactic Acid < 0.5 mmol/L (0.7-2.0) L 12/15/24 20:57
Procalcitonin < 0.05 ng/ml (0.0-0.25) 12/15/24 18:18
Ur Squamous Epith Cells 21-25 /LPF (Few) 12/15/24 19:25
Microbiology Results
Micro:
12/16/24 08:23 Nasal Screen MRSA (PCR) - Pending
Nose
12/15/24 19:25 Urine Culture - Pending
Urine
12/15/24 18:18 Influenza Types A & B ([facility]) - Final
Nasal Swab Negative for Influenza A & B, NAAT
Negative results must be combined with clinical observations
and patient history.
Nucleic Acid Amplification test (NAAT)performed on the
[employer] platform.
12/15/24 18:38 Blood Culture - Pending
Blood/Venous
12/15/24 18:18 Blood Culture - Pending
Blood/Venous
12/15/24 CT a/p: No CTA evidence for an acute pulmonary thromboembolism. Diffuse bilateral patchy pulmonary parenchymal and reticulonodular opacities concerning for pneumonia or other atypical infectious process.
Assessment / Plan
# Neutropenic fever
# Multifocal PNA
# CLL received first dose venetoclax/obinutuzumab 11/30/24
# Anemia, thrombocytopenia due to CLL
- Check urine Legionella and Strep pneumo Ag
- Follow blood cx's
- Continue cefepime.
- Add azithromycin 500mg po qd
- Continue Vancomycin for now pending bcx's
- Trend temps.
-Await for BM recovery with Granix
[2024-12-16 10:22] VITALS: BP 114/77
[2024-12-16] MEDS: GRANIX 480 MCG SC (10:26)
[2024-12-16 10:43] VITALS: BP 103/63
[2024-12-16 10:45] VITALS: BMI 20.5
[2024-12-16] MEDS: ZITHROMAX 500 MG PO (11:37)
[2024-12-16 12:02] LABS: % Eosinophils 3.7 % (0-6); % Monocytes 1.9 % (1.7-9.3); % Neutrophils 31.4 % (42.2-75.2); Absolute Lymphocytes 0.3 10^3/uL (1.2-3.4); Absolute Neutrophils 0.2 10^3/uL (1.4-6.5); Nucleated Red Blood Cells % 0 %
[2024-12-16 12:55] VITALS: BP 102/75
--- NOTE | 2024-12-16 13:22 | W.PN.HOSP.TC ---
Today's Communication/Plan
-
empiric abx
will order unit blood
Assessment / Plan
Assessment / Plan
#neutropenic fever
WBC 0.[address]: No CTA evidence for an acute pulmonary thromboembolism.
Diffuse bilateral patchy pulmonary parenchymal and reticulonodular opacities concerning for pneumonia or other atypical infectious process.
UA: does not appear to be UTI
Urine Cx: pending
Influenza & Covid: negative
- admit to med/surg
- IV Vanco and Cefepime with ID adding Azithromycin
- supportive care
- consult ID
#CLL
follows with [facility]
consult placed
#Anemia
unit PRBC ordered, Onc requests irradiated blood, order changed
#hypothyroidism
- continue hypothyroidism
#hyperlipidemia
- continue atorvastatin
#hypertension
- continue carvedilol
#asthma
- continue Breo Ellipta
#depression
- continue sertraline
#Hx [place] with sent placement
- continue aspirin
Code status: Full code
DVT prophylaxis: SCDs
Anticipated Discharge: > 48 hours
Subjective/Interval History
-
Date of Service: December 16, 2024
Awake, alert, conversant
Objective Data
-
Labs:
Laboratory Results
12/16/24
04:55
WBC 0.5 L*
Hgb 6.7 L*
Hct 19.4 L*
Plt Count 112 L
Sodium 135
Potassium 3.7
Chloride 108 H
Carbon Dioxide 23
BUN 16
Creatinine 0.6
Glucose 106 H
Calcium 7.4 L
Total Bilirubin 0.7
AST 25
ALT 29
Alkaline Phosphatase 47
Vital Signs:
Vital Signs
Temp Pulse Resp BP Pulse Ox
98.5 F 82 16 114/77 99
12/16/24 08:11 12/16/24 10:30 12/16/24 10:30 12/16/24 10:22 12/16/24 08:11
I&O
12/15/24 12/16/24 12/17/24
06:59 06:59 06:59
Intake Total 1769 630 / 630
Balance 1769 630 / 630
Review of Systems
-
History Source: Patient and Family ( in room)
Constitutional: Reports Fever (101.2 on admission)
Respiratory: Reports No Symptoms; Denies Cough
Cardiac: Reports No Symptoms; Denies Chest Pain
Musculoskeletal: Reports No Symptoms
Physical Exam
-
General: Well Developed, Well Nourished and No Apparent Distress
HEENT: Normocephalic, Atraumatic and Moist Mucous Membranes
Respiratory: Clear to Auscultation; Negative Wheezes, Rales or Rhonchi
Cardiac: Regular Rhythm and S1/S2
GI: Soft, Nontender and Nondistended
Musculoskeletal: No Clubbing, No Cyanosis and No Edema
Neuro: Awake, Alert and Oriented
[2024-12-16 15:50] VITALS: BP 108/64
[2024-12-16 16:00] VITALS: BMI 20.5
--- NOTE | 2024-12-16 16:08 | PTCARENOTE ---
pt came from ED, via stretcher, able to ambulate from stretcher to bed, VS obtained and charted; call josue within reach.
[2024-12-16] MEDS: LIPITOR 40 MG PO (21:16)
[2024-12-16] MEDS: ZOLOFT 25 MG PO (21:16)
[2024-12-16 23:43] VITALS: BP 105/54
[2024-12-17] MEDS: MAXIPIME 2000 MG IV ×3 (02:04→17:22)
[2024-12-17] MEDS: STERILE WATER FOR INJECTION 10 ML IV ×3 (02:04→17:22)
[2024-12-17] MEDS: VANCOCIN 150 IV (05:50)
[2024-12-17] MEDS: SYNTHROID 88 MCG PO (05:50)
[2024-12-17 06:28] LABS: Hematocrit 22.2 % (37.0-47.0); Hemoglobin 7.5 g/dL (12.0-16.0); Mean Corp Hgb Conc. 33.8 g/dL (33.0-37.0); Mean Corpuscular Hgb 32.9 pg (27.0-31.0); Mean Corpuscular Volume 97.4 fL (81.0-99.0); Platelet Count 119 10^3/uL (130-400); Red Blood Cell Count 2.28 10^6/uL (4.20-5.40); Red Cell Dist. Width 18.3 % (11.5-14.5); White Blood Cell Count 1.2 10^3/uL (4.8-10.8)
[2024-12-17 06:39] LABS: Blood Urea Nitrogen 14 mg/dl (7-17); Calcium 7.7 mg/dl (8.4-10.2); Carbon Dioxide 25 mmol/L (22-30); Chloride 110 mmol/L (98-107); Estimated Creatinine Clearance 85 ml/min; Glucose 93 mg/dl (70-99); Potassium 3.5 mmol/L (3.5-5.1); Sodium 138 mmol/L (135-145); eGFR > 60.00
[2024-12-17 07:45] VITALS: BP 94/62
--- NOTE | 2024-12-17 08:35 | W.PN.HOSP.TC ---
Today's Communication/Plan
-
continue current abx
monitor CBC
Assessment / Plan
Assessment / Plan
#neutropenic fever
WBC 0.6-->0.5-->1.[address]: No CTA evidence for an acute pulmonary thromboembolism.
Diffuse bilateral patchy pulmonary parenchymal and reticulonodular opacities concerning for pneumonia or other atypical infectious process.
UA: does not appear to be UTI, Urine Cx: pending
Influenza & Covid: negative
- admit to med/surg
- IV Vanco and Cefepime with ID adding Azithromycin
- supportive care
- consulted ID, input appreciated
#CLL
follows with [facility]
received Venetoclax/obinutuzumab on 11/30/24
consult placed with Onc
#Anemia
unit PRBC ordered, Onc requests irradiated blood, order changed
Hgb 8.7-->7.9 on admission-->6.7-1 unit transfused-->7.5
#hypothyroidism
- continue hypothyroidism
#hyperlipidemia
- continue atorvastatin
#hypertension
- continue carvedilol
#asthma
- continue Breo Ellipta. Stable, no wheeze appreciated
#depression
- continue sertraline
#Hx [place] with sent placement
- continue aspirin
Met with in and out of room
Code status: Full code
DVT prophylaxis: SCDs
Anticipated Discharge: > 48 hours
Subjective/Interval History
-
Date of Service: December 17, 2024
Awake, alert, voice is stronger
Objective Data
-
Labs:
Laboratory Results
12/17/24
05:14
WBC 1.2 L*
Hgb 7.5 L
Hct 22.2 L
Plt Count 119 L
Sodium 138
Potassium 3.5
Chloride 110 H
Carbon Dioxide 25
BUN 14
Creatinine 0.6
Glucose 93
Calcium 7.7 L
Vital Signs:
Vital Signs
Temp Pulse Resp BP Pulse Ox
98.6 F 87 16 94/62 96
12/17/24 07:45 12/17/24 07:45 12/17/24 07:45 12/17/24 07:45 12/17/24 07:45
I&O
12/16/24 12/17/24 12/18/24
06:59 06:59 06:59
Intake Total 1769 / 1469
Balance 1769
Review of Systems
-
History Source: Patient and Family ( in room)
Constitutional: Reports Fever (100.5 @23:43)
EENT: Reports No Symptoms Reported
Respiratory: Reports No Symptoms
Cardiac: Reports No Symptoms; Denies Chest Pain
Abdomen/GI: Reports No Symptoms
Genitourinary: Reports No Symptoms
Musculoskeletal: Reports No Symptoms
Physical Exam
-
General: Well Developed, Well Nourished and No Apparent Distress
HEENT: Normocephalic, Atraumatic and Moist Mucous Membranes
Respiratory: Clear to Auscultation; Negative Wheezes, Rales or Rhonchi
Cardiac: Regular Rhythm and S1/S2
GI: Soft, Nontender and Nondistended
Musculoskeletal: No Clubbing, No Cyanosis and No Edema
Neuro: Awake, Alert and Oriented
[2024-12-17] MEDS: COREG 3.125 MG PO ×2 (08:46→20:41)
[2024-12-17] MEDS: ASPIR LOW (ENTERIC COATED) 81 MG PO (08:47)
[2024-12-17] MEDS: VITAMIN B-12 2500 MCG PO (08:47)
[2024-12-17] MEDS: ZITHROMAX 500 MG PO (08:47)
[2024-12-17] MEDS: GRANIX 480 MCG SC (10:18)
--- NOTE | 2024-12-17 12:33 | CM ---
Initial assessment completed with pts via phone.
Pt is a 64yr old female admitted with pneumonia and neutropenic fever.
At baseline, pt lives with her in a [facility] that has 3 steps to enter and a 1st floor living set up.
Pt is indep at baseline and driving.
No current/hx of DME/VN/SNF.
PCP; Quang Agee
Pharm; [facility]
PLAN; dc to home with no anticipated needs
[2024-12-17 13:28] LABS: % Eosinophils 2.6 % (0-6); % Lymphocytes 51.3 % (20.5-51.1); % Monocytes 0.9 % (1.7-9.3); % Neutrophils 38.2 % (42.2-75.2); Absolute Immature Granulocytes 0.1 10^3/uL (0-0.05); Absolute Lymphocytes 0.6 10^3/uL (1.2-3.4); Absolute Neutrophils 0.4 10^3/uL (1.4-6.5); Nucleated Red Blood Cells % 0 %
--- NOTE | 2024-12-17 14:27 | W.PN.ID1 ---
Date of Service
Date of Service: December 17, 2024
Today's Communication
Continue Vancomycin and azithromycin.
Assessment / Plan
# Neutropenic fever
. Fever trending down
. ANC 200 -> 400
# Multifocal PNA
# CLL received first dose venetoclax/obinutuzumab 11/30/24
# Anemia, thrombocytopenia due to CLL
-COVID/Flu neg
- urine Legionella and Strep pneumo Ag neg
- blood cx's neg to date
-Ucx neg
- Continue cefepime (d3) and azithromycin (d2)
- Discontinue Vancomycin
- Trend temps.
-Await for BM recovery with Granix
Chief Complaint
-: Pneumonia
Subjective / Review of Systems
She feels improved today. No further diarrhea.
Vital Signs / Physical Exam
Vital Signs
Vital Signs
Temp Pulse Resp BP Pulse Ox
98.6 F 87 16 94/62 96
12/17/24 07:45 12/17/24 07:45 12/17/24 07:45 12/17/24 07:45 12/17/24 07:45
Selected Entries
12/16/24
23:43
Temp 100.5 F H
Physical Exam
Constitutional: No Acute Distress and Comfortable
Eyes: No Conjunctival Hemorrhage and Sclera Anicteric
Pulmonary: Clear
Gastrointestinal: Soft, Non Tender and Non Distended
Genito-Urinary: Negative CVA Tenderness
Extremities: Negative Edema
Neurological: AO x 3
Objective Data
Lab Data
Lab Results
12/17/24 05:14
12/17/24 05:14
APTT 37.5 Sec (23.4-35.0) H 12/15/24 18:18
Estimated Creat Clear 85 ml/min 12/17/24 05:14
Lactic Acid < 0.5 mmol/L (0.7-2.0) L 12/15/24 20:57
Total Bilirubin 0.7 mg/dl (0.2-1.3) 12/16/24 04:55
AST 25 U/L (14-36) 12/16/24 04:55
ALT 29 U/L (0-35) 12/16/24 04:55
Alkaline Phosphatase 47 U/L (38-126) 12/16/24 04:55
Most recent labs reviewed.
Micro Results:
12/15/24 19:25 Urine Culture - Final
Urine NO GROWTH
12/15/24 18:38 Blood Culture - Preliminary
Blood/Venous No Growth in 24 hours- Final report to follow
12/15/24 18:18 Blood Culture - Preliminary
Blood/Venous No Growth in 24 hours- Final report to follow
12/16/24 12:45 Streptococcus pneumoniae Antigen (M - Final
Urine Negative for Streptococcus pneumoniae antigen.
A negative result does not exclude infection with
Streptococcus pneumoniae. Clinical correlation is
recommended.
12/16/24 12:45 Legionella Urinary Antigen - Final
Urine Negative for Legionella pneumophila Serogroup 1 antigen.
A negative result does not rule out the possiblity of
Legionella infection due to other serogroups or species of
Legionella. Clinical correlation is recommended.
12/16/24 08:23 Nasal Screen MRSA (PCR) - Final
Nose MRSA not detected - performed by PCR methodology.
12/15/24 18:18 Influenza Types A & B ([facility]) - Final
Nasal Swab Negative for Influenza A & B, NAAT
Negative results must be combined with clinical observations
and patient history.
Nucleic Acid Amplification test (NAAT)performed on the
[employer] platform.
12/15/24 CT a/p: No CTA evidence for an acute pulmonary thromboembolism. Diffuse bilateral patchy pulmonary parenchymal and reticulonodular opacities concerning for pneumonia or other atypical infectious process.
[2024-12-17 15:50] VITALS: BP 100/60
[2024-12-17] MEDS: FLUSH (NSS) 2 FLUSH IV (17:23)
--- NOTE | 2024-12-17 18:08 | PTCARENOTE ---
pt has a Right chest wall with the need of being flushed with heparin with each use, talked to Dr Casanova if ok for staff to use port to give antibiotics IV and flush with Heparin given oniel fact that her platelets are low, he confirmed with
this nurse that OK to use heparin and not get a peripheral line.
[2024-12-17] MEDS: LIPITOR 40 MG PO (21:45)
[2024-12-17] MEDS: ZOLOFT 25 MG PO (21:45)
--- NOTE | 2024-12-17 22:37 | W.PN.ONC ---
Today's Communication / Plan
-
anticipate D/C in next 24-48 hours with ANC >500 and negative cultures-- f/u in office scheduled this wednesday
Impression
Impression
Progressive stage 0 CLL s/p C1 d1/2 obinutuzumab /(venetoclax)
Plan
Plan
transfuse irradiated /leudodepleted pRBCs as clinically indicated-- maintain antibiotics pending recovery CBC --CSF ordered--daily CBC-- d/c allopurinol ( no further risk CTS)
Subjective/Objective
Subjective/Objective
feels well-- good appetite
Vital Signs:
Vital Signs
Temp Pulse Resp BP Pulse Ox
98.1 F 89 16 100/60 98
12/17/24 15:50 12/17/24 15:50 12/17/24 15:50 12/17/24 15:50 12/17/24 15:50
Lab Results:
Laboratory Data
WBC 1.2 10^3/uL (4.8-10.8) L* 12/17/24 05:14
Hgb 7.5 g/dL (12.0-16.0) L 12/17/24 05:14
Plt Count 119 10^3/uL (130-400) L 12/17/24 05:14
APTT 37.5 Sec (23.4-35.0) H 12/15/24 18:18
eGFR > 60.00 12/17/24 05:14
[2024-12-17 23:40] VITALS: BP 101/67
[2024-12-18] MEDS: MAXIPIME 2000 MG IV ×2 (02:04→09:09)
[2024-12-18] MEDS: STERILE WATER FOR INJECTION 10 ML IV ×2 (02:04→09:09)
[2024-12-18 05:30] LABS: Hematocrit 24.1 % (37.0-47.0); Hemoglobin 8.2 g/dL (12.0-16.0); Mean Corpuscular Hgb 33.3 pg (27.0-31.0); Platelet Count 135 10^3/uL (130-400); Red Blood Cell Count 2.46 10^6/uL (4.20-5.40); White Blood Cell Count 1.6 10^3/uL (4.8-10.8)
[2024-12-18] MEDS: SYNTHROID 88 MCG PO (05:39)
[2024-12-18 06:19] LABS: Blood Urea Nitrogen 13 mg/dl (7-17); Carbon Dioxide 22 mmol/L (22-30); Chloride 106 mmol/L (98-107); Estimated Creatinine Clearance 85 ml/min; Glucose 94 mg/dl (70-99); Potassium 3.8 mmol/L (3.5-5.1); Sodium 136 mmol/L (135-145); eGFR > 60.00
[2024-12-18 08:14] LABS: Band Neutrophils 7 % (0-3); Lymphocytes 39 % (20-51); Monocytes 2 % (2-9); Platelets Checked Yes; Segmented Neutrophils 52 % (42-75)
[2024-12-18 08:15] LABS: Acanthocytes 1+; Anisocytosis 1+; Hypochromasia 1+; Normal RBC Morphology No; Ovalocytes 1+; Polychromasia 1+; Total Cells Counted 100
[2024-12-18 08:17] LABS: Absolute Neutrophils -Man Diff 0.9 10^3/uL (1.4-6.5)
[2024-12-18 08:40] VITALS: BP 111/60
[2024-12-18] MEDS: COREG 3.125 MG PO (09:07)
[2024-12-18] MEDS: ZITHROMAX 500 MG PO (09:07)
[2024-12-18] MEDS: VITAMIN B-12 2500 MCG PO (09:08)
[2024-12-18] MEDS: ASPIR LOW (ENTERIC COATED) 81 MG PO (09:08)
[2024-12-18] MEDS: FLUSH (NSS) 2 FLUSH IV (09:09)
[2024-12-18] MEDS: GRANIX 480 MCG SC (09:10)
[2024-12-18 09:30] VITALS: BP 111/60
--- NOTE | 2024-12-18 10:59 | W.PN.ID1 ---
Date of Service
Date of Service: December 18, 2024
Today's Communication
Tansition to Levofloxacin 500mg po daily through 12/25/24. Pt has abx at home (took 2 doses prior to admission.
Assessment / Plan
# Neutropenic fever
. Fever trending down. Low grade temp, not sustained without Tylenol.
. ANC 200 -> 400-> 900
# Multifocal PNA
# CLL received first dose venetoclax/obinutuzumab 11/30/24
# Anemia, thrombocytopenia due to CLL
-COVID/Flu neg
- urine Legionella and Strep pneumo Ag neg
- blood cx's neg to date
-Ucx neg
- Can transition cefepime (d4) and azithromycin (d3) to Levofloxacin 500mg po daily through 12/25/24. Pt has abx at home (had 2 doses prior to admission.
- OK to dc home.
Chief Complaint
-: Pneumonia
Subjective / Review of Systems
Feels much improved. Wants to go home.
Did not notice temp 100.9 last night. Recheck 1 hour without Tylenol, no fever.
Vital Signs / Physical Exam
Vital Signs
Vital Signs
Temp Pulse Resp BP Pulse Ox
98.1 F 91 16 111/60 95
12/18/24 08:40 12/18/24 09:07 12/18/24 08:40 12/18/24 09:07 12/18/24 10:39
Physical Exam
Constitutional: No Acute Distress
Cardiovascular: Regular Rate and S1/S2
Pulmonary: Clear
Gastrointestinal: Soft, Non Distended and Normal Bowel Sounds
Genito-Urinary: Negative CVA Tenderness
Extremities: Negative Edema
Neurological: AO x 3
Objective Data
Lab Data
Lab Results
12/18/24 04:48
12/18/24 04:48
APTT 37.5 Sec (23.4-35.0) H 12/15/24 18:18
Estimated Creat Clear 85 ml/min 12/18/24 04:48
Lactic Acid < 0.5 mmol/L (0.7-2.0) L 12/15/24 20:57
Total Bilirubin 0.7 mg/dl (0.2-1.3) 12/16/24 04:55
AST 25 U/L (14-36) 12/16/24 04:55
ALT 29 U/L (0-35) 12/16/24 04:55
Alkaline Phosphatase 47 U/L (38-126) 12/16/24 04:55
Most recent labs reviewed.
Micro Results:
12/15/24 18:38 Blood Culture - Preliminary
Blood/Venous No Growth in 48 hours- Final report to follow
12/15/24 18:18 Blood Culture - Preliminary
Blood/Venous No Growth in 48 hours- Final report to follow
12/15/24 19:25 Urine Culture - Final
Urine NO GROWTH
12/16/24 12:45 Streptococcus pneumoniae Antigen (M - Final
Urine Negative for Streptococcus pneumoniae antigen.
A negative result does not exclude infection with
Streptococcus pneumoniae. Clinical correlation is
recommended.
12/16/24 12:45 Legionella Urinary Antigen - Final
Urine Negative for Legionella pneumophila Serogroup 1 antigen.
A negative result does not rule out the possiblity of
Legionella infection due to other serogroups or species of
Legionella. Clinical correlation is recommended.
12/16/24 08:23 Nasal Screen MRSA (PCR) - Final
Nose MRSA not detected - performed by PCR methodology.
12/15/24 18:18 Influenza Types A & B ([facility]) - Final
Nasal Swab Negative for Influenza A & B, NAAT
Negative results must be combined with clinical observations
and patient history.
Nucleic Acid Amplification test (NAAT)performed on the
[employer] platform.
12/15/24 CT a/p: No CTA evidence for an acute pulmonary thromboembolism. Diffuse bilateral patchy pulmonary parenchymal and reticulonodular opacities concerning for pneumonia or other atypical infectious process.
Care Review
Plan reviewed with: Physician (Dr. Orozco)
[2024-12-18 13:00] VITALS: BP 105/67
--- NOTE | 2024-12-18 13:10 | W.DCSUMMARY ---
Discharge Summary
Discharge Data
Date of Admission: 12/15/24
Date of Discharge: 12/18/24
-
Pending Results: No
Hospital Course
Ms. Valadez is a 64-year-old female with a medical history of CLL, hypertension, asthma, and hypothyroidism who presented with a fever. She was admitted for treatment of multifocal pneumonia with neutropenic fever. She was treated with cefepime and
azithromycin and clinically improved. Ultimately she was able to be transition to oral levofloxacin for discharge to home. She had previously been started on a course of levofloxacin prior to this admission and did take an 2 doses before
presenting to the hospital. She still has the levofloxacin tablets at home and will complete that course as prescribed through 12/25/2024. Also of note, while she was in the hospital her hemoglobin dropped to 6.7 at which point she was transfused 1
unit of irradiated and leukoreduced PRBCs. Her hemoglobin recovered to over 8.0 and remained stable. She follows with [facility] and received first dose venetoclax/obinutuzumab 11/30/24. During this hospitalization, she
was given 3 doses of Granix for an absolute neutrophil count of 200 which steadily improved to 900. She has planned follow-up with [facility] for further management.
Gen-AAOx3, NAD
HEENT-NC, AT, anicteric, clear oral mm
Neck-supple
CV-reg, no M, +S1/S2
Lungs-clear B/L
Abd-soft, NT, ND
Musculoskeletal-no edema, no deformity
Skin-warm and dry
Neuro-grossly non-focal
Psych-calm, cooperative
Discharge Plan
-
Patient Disposition: Home (Routine Discharge)
Discharge Diagnosis/Procedures: Multifocal pneumonia with neutropenic fever
Activity Restrictions/Additional Instructions:
Ms. Valadez is a 64-year-old female with a medical history of CLL, hypertension, asthma, and hypothyroidism who presented with a fever. She was admitted for treatment of multifocal pneumonia with neutropenic fever. She was treated with cefepime and
azithromycin and clinically improved. Ultimately she was able to be transition to oral levofloxacin for discharge to home. She had previously been started on a course of levofloxacin prior to this admission and did take an 2 doses before
presenting to the hospital. She still has the levofloxacin tablets at home and will complete that course as prescribed through 12/25/2024. Also of note, while she was in the hospital her hemoglobin dropped to 6.7 at which point she was transfused 1
unit of irradiated and leukoreduced PRBCs. Her hemoglobin recovered to over 8.0 and remained stable. She follows with [facility] and received first dose venetoclax/obinutuzumab 11/30/24. During this hospitalization, she
was given 3 doses of Granix for an absolute neutrophil count of 200 which steadily improved to 900. She has planned follow-up with [facility] for further management.
Referrals:
Quang Agee MD [Family Provider] -
Prescriptions:
New
levofloxacin 500 mg tablet
500 mg PO DAILY Qty: 7 0RF
Continued
atorvastatin [Lipitor] 40 mg Tablet
40 mg PO HS
cyanocobalamin (vitamin B-12) [Vitamin B-12] 2,500 mcg Tablet, Sublingual
2,500 mcg SUBLINGUAL DAILY
carvedilol 3.125 mg Tablet
3.125 mg PO BID
levothyroxine [Synthroid] 88 mcg Tablet
88 mcg PO DAILY@06
sertraline 25 mg Tablet
25 mg PO HS
albuterol sulfate [ProAir HFA] 90 mcg/actuation Hfa Aerosol Inhaler
2 puff INHALATION R Q6HPRN PRN (Reason: asthma)
acetaminophen [Tylenol] 325 mg Tablet
650 mg PO Q6HPRN PRN (Reason: mild pain)
aspirin 81 mg Tablet,Delayed Release (Dr/Ec)
81 mg PO DAILY
fluticasone furoate-vilanterol [Breo Ellipta] 100-25 mcg/dose Blister With Device
1 inh INHALATION R DAILYPRN PRN (Reason: sob)
Discontinued
allopurinol 300 mg Tablet
300 mg PO DAILY
levofloxacin 500 mg Tablet
500 mg PO DAILY
Patient Comments:
patient picker on 12/14/24 #14
Discharge Orders:
Discharge Patient (As Directed); Ordered 12/18/24
Ordered By: Jarred Armenta
Discharge Date and Time
Print Language: RUSSIAN
[2024-12-20 12:29] LABS: IgG 142 mg/dL (768-1632); IgM 11 mg/dL (35-263)
[2024-12-20 12:30] LABS: IgA 29 mg/dL (68-408)
== END 2024-12-18 13:51 | disposition home or self-care (01) | DRG 808 ==
LOC: 2 NORTH 22:37
PROVIDERS: Internal Medicine; Nurse Practitioner Family; Physician Assistant; ADMITTING PHYSICIAN Hospitalist; ATTENDING PHYSICIAN Internal Medicine; CONSULT PHYSICIAN Internal Medicine Hematology & Oncology; CONSULT PHYSICIAN Internal Medicine Infectious Disease; EMERGENCY PHYSICIAN Emergency Medicine; FAMILY PHYSICIAN Family Medicine
PROC: 30233N1 Transfusion of Nonautologous Red Blood Cells into Peripheral Vein, Percutaneous Approach (ICD-10-PCS; 2024-12-16)
DX: D70.9 Neutropenia, unspecified (principal); J18.9 Pneumonia, unspecified organism; C91.10 Chronic lymphocytic leukemia of B-cell type not having achieved remission; R50.81 Fever presenting with conditions classified elsewhere; E03.9 Hypothyroidism, unspecified; I10 Essential (primary) hypertension; Z11.52 Encounter for screening for COVID-19; I25.10 Atherosclerotic heart disease of native coronary artery without angina pectoris; J45.909 Unspecified asthma, uncomplicated; F32.A Depression, unspecified; E78.5 Hyperlipidemia, unspecified; I25.2 Old myocardial infarction; Z95.5 Presence of coronary angioplasty implant and graft; Z88.0 Allergy status to penicillin; Z79.82 Long term (current) use of aspirin; Z79.899 Other long term (current) drug therapy; Z79.890 Hormone replacement therapy; D63.0 Anemia in neoplastic disease
CPT/HCPCS: 71275; 80048; 80053; 81003; 81015; 82784; 83605; 84145; 85025; 85730; 86850; 86900; 86901; 86920; 87040; 87086; 87449; 87502; 87641; 87811; 87899; 93005; 96361; 96374; 96375; 99285; J1447; P9058; Q9967

== ENCOUNTER → 2024-12-25 10:13 | Outpatient (REF) | payer OTHER, SELFPAY ==
[2024-12-25 11:52] LABS: % Basophils 0.5 % (0-2); % Eosinophils 0.5 % (0-6); % Lymphocytes 22.7 % (20.5-51.1); % Neutrophils 72.3 % (42.2-75.2); Absolute Immature Granulocytes 0.1 10^3/uL (0-0.05); Absolute Monocytes 0.1 10^3/uL (0.1-0.6); Absolute Neutrophils 3.2 10^3/uL (1.4-6.5); Hematocrit 29.9 % (37.0-47.0); Hemoglobin 9.6 g/dL (12.0-16.0); Mean Corp Hgb Conc. 32.1 g/dL (33.0-37.0); Mean Corpuscular Volume 102.7 fL (81.0-99.0); Mean Platelet Volume 9.4 fL (7.4-10.4); Nucleated Red Blood Cells % 0 %; Platelet Count 241 10^3/uL (130-400); Red Blood Cell Count 2.91 10^6/uL (4.20-5.40); Red Cell Dist. Width 18.2 % (11.5-14.5); White Blood Cell Count 4.4 10^3/uL (4.8-10.8)
[2024-12-25 12:56] LABS: Uric Acid 5.3 mg/dl (2.5-6.2)
== END ==
LOC: REG 10:13
PROVIDERS: ATTENDING PHYSICIAN Internal Medicine Hematology & Oncology; FAMILY PHYSICIAN Family Medicine
DX: C91.10 Chronic lymphocytic leukemia of B-cell type not having achieved remission (principal); R59.0 Localized enlarged lymph nodes; D69.59 Other secondary thrombocytopenia; D63.8 Anemia in other chronic diseases classified elsewhere; D68.9 Coagulation defect, unspecified; R16.1 Splenomegaly, not elsewhere classified; R11.0 Nausea; D51.8 Other vitamin B12 deficiency anemias; D80.1 Nonfamilial hypogammaglobulinemia
CPT/HCPCS: 36415; 84550; 85025

== ENCOUNTER → 2025-01-02 10:04 | Outpatient (REF) | payer OTHER, SELFPAY ==
[2025-01-02 11:10] LABS: % Eosinophils 0.8 % (0-6); % Immature Granulocytes 0.8 % (0-0.5); % Lymphocytes 31.4 % (20.5-51.1); % Monocytes 4.3 % (1.7-9.3); % Neutrophils 61.7 % (42.2-75.2); Absolute Lymphocytes 1.3 10^3/uL (1.2-3.4); Absolute Monocytes 0.2 10^3/uL (0.1-0.6); Absolute Neutrophils 2.5 10^3/uL (1.4-6.5); Hematocrit 35.7 % (37.0-47.0); Hemoglobin 11.2 g/dL (12.0-16.0); Mean Corp Hgb Conc. 31.4 g/dL (33.0-37.0); Mean Corpuscular Hgb 33.3 pg (27.0-31.0); Mean Corpuscular Volume 106.3 fL (81.0-99.0); Mean Platelet Volume 9.3 fL (7.4-10.4); Nucleated Red Blood Cells % 0 %; Platelet Count 204 10^3/uL (130-400); Red Blood Cell Count 3.36 10^6/uL (4.20-5.40); Red Cell Dist. Width 17.8 % (11.5-14.5)
[2025-01-02 11:41] LABS: ALT (SGPT) 51 U/L (0-35); AST (SGOT) 32 U/L (14-36); Albumin 3.7 g/dl (3.5-5.0); Alkaline Phosphatase 61 U/L (38-126); Blood Urea Nitrogen 21 mg/dl (7-17); Calcium 9.2 mg/dl (8.4-10.2); Carbon Dioxide 31 mmol/L (22-30); Chloride 103 mmol/L (98-107); Glucose 82 mg/dl (70-99); Potassium 4.3 mmol/L (3.5-5.1); Sodium 139 mmol/L (135-145); Total Bilirubin 0.9 mg/dl (0.2-1.3); Total Protein 5.3 g/dl (6.3-8.2); Uric Acid 3.5 mg/dl (2.5-6.2); eGFR > 60.00
== END ==
LOC: REG 10:04
PROVIDERS: ATTENDING PHYSICIAN Internal Medicine Hematology & Oncology; FAMILY PHYSICIAN Family Medicine
DX: C91.10 Chronic lymphocytic leukemia of B-cell type not having achieved remission (principal); R59.0 Localized enlarged lymph nodes; D69.59 Other secondary thrombocytopenia; D63.8 Anemia in other chronic diseases classified elsewhere; D68.9 Coagulation defect, unspecified; R16.1 Splenomegaly, not elsewhere classified; R11.0 Nausea; D51.8 Other vitamin B12 deficiency anemias; D80.1 Nonfamilial hypogammaglobulinemia
CPT/HCPCS: 36415; 80053; 84550; 85025

== ENCOUNTER 2025-01-04 11:43 | Outpatient (RCR) | payer OTHER, SELFPAY ==
[2025-01-04 10:44] LABS: Creatine Phosphokinase < 20 U/L (30-135)
== END 2025-01-04 23:59 | disposition home or self-care (01) ==
LOC: OID 11:43
PROVIDERS: ATTENDING PHYSICIAN Internal Medicine Hematology & Oncology; FAMILY PHYSICIAN Family Medicine
DX: C91.10 Chronic lymphocytic leukemia of B-cell type not having achieved remission (principal); R59.0 Localized enlarged lymph nodes; D69.59 Other secondary thrombocytopenia; D63.0 Anemia in neoplastic disease; D68.9 Coagulation defect, unspecified; R16.1 Splenomegaly, not elsewhere classified; R11.0 Nausea; D51.8 Other vitamin B12 deficiency anemias; D80.1 Nonfamilial hypogammaglobulinemia
CPT/HCPCS: 82550

== ENCOUNTER → 2025-01-04 13:28 | Outpatient (REF) | payer OTHER, SELFPAY | LOC: RCS 13:28 | PROVIDERS: ATTENDING PHYSICIAN Internal Medicine Hematology & Oncology; FAMILY PHYSICIAN Family Medicine | DX: C91.10 Chronic lymphocytic leukemia of B-cell type not having achieved remission (principal); R59.0 Localized enlarged lymph nodes; D69.59 Other secondary thrombocytopenia; D63.8 Anemia in other chronic diseases classified elsewhere; D68.9 Coagulation defect, unspecified; R16.1 Splenomegaly, not elsewhere classified; R11.0 Nausea; D51.8 Other vitamin B12 deficiency anemias; D80.1 Nonfamilial hypogammaglobulinemia | CPT/HCPCS: 93005 ==

== ENCOUNTER → 2025-01-10 10:43 | Outpatient (REF) | payer OTHER, SELFPAY ==
[2025-01-10 12:14] LABS: Uric Acid 3.4 mg/dl (2.5-6.2)
[2025-01-12 19:13] LABS: IgA 24 mg/dL (68-408); IgG 184 mg/dL (768-1632); IgM <10 mg/dL (35-263)
== END ==
LOC: REG 10:43
PROVIDERS: ATTENDING PHYSICIAN Internal Medicine Hematology & Oncology; FAMILY PHYSICIAN Family Medicine
DX: C91.10 Chronic lymphocytic leukemia of B-cell type not having achieved remission (principal); R59.0 Localized enlarged lymph nodes; D69.59 Other secondary thrombocytopenia; D63.8 Anemia in other chronic diseases classified elsewhere; D68.9 Coagulation defect, unspecified; R16.1 Splenomegaly, not elsewhere classified; R11.0 Nausea; D51.8 Other vitamin B12 deficiency anemias; D80.1 Nonfamilial hypogammaglobulinemia
CPT/HCPCS: 36415; 82784; 84550

== ENCOUNTER → 2025-01-16 11:16 | Outpatient (REF) | payer OTHER, SELFPAY ==
[2025-01-16 12:10] LABS: % Basophils 0.2 % (0-2); % Eosinophils 4.9 % (0-6); % Immature Granulocytes 0.4 % (0-0.5); % Lymphocytes 25.2 % (20.5-51.1); % Monocytes 6.7 % (1.7-9.3); % Neutrophils 62.6 % (42.2-75.2); Absolute Eosinophils 0.2 10^3/uL (0-0.7); Absolute Lymphocytes 1.1 10^3/uL (1.2-3.4); Absolute Monocytes 0.3 10^3/uL (0.1-0.6); Absolute Neutrophils 2.8 10^3/uL (1.4-6.5); Hematocrit 37.6 % (37.0-47.0); Hemoglobin 12.4 g/dL (12.0-16.0); Mean Corpuscular Hgb 33.7 pg (27.0-31.0); Mean Corpuscular Volume 102.2 fL (81.0-99.0); Mean Platelet Volume 9.5 fL (7.4-10.4); Nucleated Red Blood Cells % 0 %; Platelet Count 118 10^3/uL (130-400); Red Blood Cell Count 3.68 10^6/uL (4.20-5.40); Red Cell Dist. Width 15.7 % (11.5-14.5); White Blood Cell Count 4.5 10^3/uL (4.8-10.8)
[2025-01-16 12:43] LABS: ALT (SGPT) 82 U/L (0-35); AST (SGOT) 45 U/L (14-36); Alkaline Phosphatase 53 U/L (38-126); Blood Urea Nitrogen 22 mg/dl (7-17); Calcium 9.2 mg/dl (8.4-10.2); Carbon Dioxide 32 mmol/L (22-30); Chloride 103 mmol/L (98-107); Glucose 88 mg/dl (70-99); Potassium 4.2 mmol/L (3.5-5.1); Sodium 139 mmol/L (135-145); Total Bilirubin 1.2 mg/dl (0.2-1.3); eGFR > 60.00
== END ==
LOC: REG 11:16
PROVIDERS: ATTENDING PHYSICIAN Family Medicine; FAMILY PHYSICIAN Internal Medicine Hematology & Oncology
DX: J18.9 Pneumonia, unspecified organism (principal); C91.10 Chronic lymphocytic leukemia of B-cell type not having achieved remission; R59.0 Localized enlarged lymph nodes; D69.59 Other secondary thrombocytopenia; D63.8 Anemia in other chronic diseases classified elsewhere; D68.9 Coagulation defect, unspecified; R16.1 Splenomegaly, not elsewhere classified; R11.0 Nausea; D51.8 Other vitamin B12 deficiency anemias; D80.1 Nonfamilial hypogammaglobulinemia
CPT/HCPCS: 36415; 71046; 80053; 84550; 85025

== ENCOUNTER → 2025-01-23 10:50 | Outpatient (REF) | payer OTHER, SELFPAY ==
[2025-01-23 11:59] LABS: % Basophils 0.3 % (0-2); % Eosinophils 4.8 % (0-6); % Immature Granulocytes 0.3 % (0-0.5); % Lymphocytes 21.8 % (20.5-51.1); % Monocytes 8.2 % (1.7-9.3); % Neutrophils 64.6 % (42.2-75.2); Absolute Eosinophils 0.2 10^3/uL (0-0.7); Absolute Lymphocytes 0.7 10^3/uL (1.2-3.4); Absolute Monocytes 0.3 10^3/uL (0.1-0.6); Absolute Neutrophils 2.1 10^3/uL (1.4-6.5); Hematocrit 39.3 % (37.0-47.0); Hemoglobin 13.1 g/dL (12.0-16.0); Mean Corp Hgb Conc. 33.3 g/dL (33.0-37.0); Mean Corpuscular Hgb 33.8 pg (27.0-31.0); Mean Corpuscular Volume 101.3 fL (81.0-99.0); Mean Platelet Volume 9.2 fL (7.4-10.4); Nucleated Red Blood Cells % 0 %; Platelet Count 92 10^3/uL (130-400); Red Blood Cell Count 3.88 10^6/uL (4.20-5.40); Red Cell Dist. Width 14.7 % (11.5-14.5); White Blood Cell Count 3.3 10^3/uL (4.8-10.8)
[2025-01-23 12:18] LABS: Alkaline Phosphatase 54 U/L (38-126); Blood Urea Nitrogen 26 mg/dl (7-17); Calcium 9.4 mg/dl (8.4-10.2); Carbon Dioxide 31 mmol/L (22-30); Chloride 99 mmol/L (98-107); Glucose 76 mg/dl (70-99); Potassium 4.5 mmol/L (3.5-5.1); Sodium 139 mmol/L (135-145); eGFR > 60.00
[2025-01-23 12:19] LABS: ALT (SGPT) 65 U/L (0-35); AST (SGOT) 37 U/L (14-36); Albumin 4.6 g/dl (3.5-5.0); Total Bilirubin 1.4 mg/dl (0.2-1.3); Total Protein 6.4 g/dl (6.3-8.2)
[2025-01-23 12:20] LABS: Uric Acid 3.8 mg/dl (2.5-6.2)
== END ==
LOC: REG 10:50
PROVIDERS: ATTENDING PHYSICIAN Internal Medicine Hematology & Oncology
DX: C91.10 Chronic lymphocytic leukemia of B-cell type not having achieved remission (principal); R59.0 Localized enlarged lymph nodes; D69.59 Other secondary thrombocytopenia; D63.8 Anemia in other chronic diseases classified elsewhere; D68.9 Coagulation defect, unspecified; R16.1 Splenomegaly, not elsewhere classified; R11.0 Nausea; D51.8 Other vitamin B12 deficiency anemias; D80.1 Nonfamilial hypogammaglobulinemia
CPT/HCPCS: 36415; 80053; 84550; 85025

== ENCOUNTER → 2025-01-30 10:14 | Outpatient (REF) | payer OTHER, SELFPAY ==
[2025-01-30 11:03] LABS: % Basophils 0.5 % (0-2); % Eosinophils 1.8 % (0-6); % Immature Granulocytes 0.3 % (0-0.5); % Lymphocytes 19.2 % (20.5-51.1); % Monocytes 7.4 % (1.7-9.3); % Neutrophils 70.8 % (42.2-75.2); Absolute Eosinophils 0.1 10^3/uL (0-0.7); Absolute Lymphocytes 0.7 10^3/uL (1.2-3.4); Absolute Monocytes 0.3 10^3/uL (0.1-0.6); Absolute Neutrophils 2.7 10^3/uL (1.4-6.5); Hematocrit 37.1 % (37.0-47.0); Hemoglobin 12.5 g/dL (12.0-16.0); Mean Corp Hgb Conc. 33.7 g/dL (33.0-37.0); Mean Corpuscular Hgb 33.5 pg (27.0-31.0); Mean Corpuscular Volume 99.5 fL (81.0-99.0); Nucleated Red Blood Cells % 0 %; Platelet Count 83 10^3/uL (130-400); Red Blood Cell Count 3.73 10^6/uL (4.20-5.40); Red Cell Dist. Width 13.8 % (11.5-14.5); White Blood Cell Count 3.8 10^3/uL (4.8-10.8)
[2025-01-30 11:21] LABS: Chloride 101 mmol/L (98-107)
[2025-01-30 11:34] LABS: ALT (SGPT) 69 U/L (0-35); AST (SGOT) 50 U/L (14-36); Albumin 4.1 g/dl (3.5-5.0); Alkaline Phosphatase 57 U/L (38-126); Blood Urea Nitrogen 26 mg/dl (7-17); Calcium 9.7 mg/dl (8.4-10.2); Carbon Dioxide 32 mmol/L (22-30); Glucose 77 mg/dl (70-99); Potassium 4.6 mmol/L (3.5-5.1); Sodium 142 mmol/L (135-145); Total Bilirubin 1.2 mg/dl (0.2-1.3); Total Protein 5.9 g/dl (6.3-8.2); Uric Acid 3.8 mg/dl (2.5-6.2); eGFR > 60.00
== END ==
LOC: REG 10:14
PROVIDERS: ATTENDING PHYSICIAN Internal Medicine Hematology & Oncology
DX: C91.10 Chronic lymphocytic leukemia of B-cell type not having achieved remission (principal); R59.0 Localized enlarged lymph nodes; D69.59 Other secondary thrombocytopenia; D63.8 Anemia in other chronic diseases classified elsewhere; D68.9 Coagulation defect, unspecified; R16.1 Splenomegaly, not elsewhere classified; R11.0 Nausea; D51.8 Other vitamin B12 deficiency anemias; D80.1 Nonfamilial hypogammaglobulinemia
CPT/HCPCS: 36415; 80053; 84550; 85025

== ENCOUNTER → 2025-02-05 08:03 | Outpatient (REF) | payer OTHER, SELFPAY ==
[2025-02-05 11:32] LABS: % Basophils 0.5 % (0-2); % Eosinophils 2.4 % (0-6); % Immature Granulocytes 0.5 % (0-0.5); % Lymphocytes 27.8 % (20.5-51.1); % Monocytes 13.2 % (1.7-9.3); % Neutrophils 55.6 % (42.2-75.2); Absolute Eosinophils 0.1 10^3/uL (0-0.7); Absolute Lymphocytes 0.6 10^3/uL (1.2-3.4); Absolute Monocytes 0.3 10^3/uL (0.1-0.6); Absolute Neutrophils 1.2 10^3/uL (1.4-6.5); Hemoglobin 12.7 g/dL (12.0-16.0); Mean Corp Hgb Conc. 33.4 g/dL (33.0-37.0); Mean Corpuscular Hgb 33.2 pg (27.0-31.0); Mean Corpuscular Volume 99.2 fL (81.0-99.0); Mean Platelet Volume 9.7 fL (7.4-10.4); Nucleated Red Blood Cells % 0 %; Platelet Count 87 10^3/uL (130-400); Red Blood Cell Count 3.83 10^6/uL (4.20-5.40); Red Cell Dist. Width 13.3 % (11.5-14.5); White Blood Cell Count 2.1 10^3/uL (4.8-10.8)
[2025-02-05 11:40] LABS: ALT (SGPT) 81 U/L (0-35); AST (SGOT) 50 U/L (14-36); Albumin 4.2 g/dl (3.5-5.0); Alkaline Phosphatase 68 U/L (38-126); Blood Urea Nitrogen 24 mg/dl (7-17); Calcium 9.5 mg/dl (8.4-10.2); Carbon Dioxide 32 mmol/L (22-30); Chloride 104 mmol/L (98-107); Glucose 89 mg/dl (70-99); HDL Cholesterol 35 mg/dl; LDL Cholesterol, Calculated 65 mg/dl; Potassium 4.1 mmol/L (3.5-5.1); Sodium 144 mmol/L (135-145); Total Bilirubin 1.3 mg/dl (0.2-1.3); Total Cholesterol 116 mg/dl (50-199); Total Protein 6.1 g/dl (6.3-8.2); Triglyceride 80 mg/dl (10-149); Very Low Density Lipoprotein 16 mg/dl (0-30); eGFR > 60.00
[2025-02-07 13:17] LABS: Albumin 4.31 g/dL (3.75-5.01); Alpha 1 Globulin 0.26 g/dL (0.19-0.46); Alpha 2 Globulin 0.51 g/dL (0.48-1.05); Free Lambda Light Chains,Quant 7.31 mg/L (5.71-26.30); IgA 29 mg/dL (68-408); IgG 535 mg/dL (768-1632); IgM 14 mg/dL (35-263); Immunofixation Electrophoresis IFE Done; Kappa/Lambda Fr Light Ratio 2.04 (0.26-1.65); Total Protein-Electrophoresis 6.2 g/dL (6.3-8.2)
== END ==
LOC: HWLAB 08:03
PROVIDERS: ATTENDING PHYSICIAN Internal Medicine Hematology & Oncology; FAMILY PHYSICIAN Family Medicine; REFERRING PHYSICIAN Internal Medicine Cardiovascular Disease
DX: C91.10 Chronic lymphocytic leukemia of B-cell type not having achieved remission (principal); R59.0 Localized enlarged lymph nodes; D69.59 Other secondary thrombocytopenia; D63.8 Anemia in other chronic diseases classified elsewhere; D68.9 Coagulation defect, unspecified; R16.1 Splenomegaly, not elsewhere classified; R11.0 Nausea; D51.8 Other vitamin B12 deficiency anemias; D80.1 Nonfamilial hypogammaglobulinemia; E78.2 Mixed hyperlipidemia; I10 Essential (primary) hypertension
CPT/HCPCS: 36415; 80053; 80061; 82784; 83521; 84155; 84165; 84550; 85025; 86334

== ENCOUNTER → 2025-02-13 10:28 | Outpatient (REF) | payer OTHER, SELFPAY ==
[2025-02-13 12:09] LABS: % Basophils 0.4 % (0-2); % Eosinophils 0.4 % (0-6); % Immature Granulocytes 0.4 % (0-0.5); % Lymphocytes 27.2 % (20.5-51.1); % Monocytes 15.8 % (1.7-9.3); % Neutrophils 55.8 % (42.2-75.2); Absolute Lymphocytes 0.6 10^3/uL (1.2-3.4); Absolute Monocytes 0.4 10^3/uL (0.1-0.6); Absolute Neutrophils 1.3 10^3/uL (1.4-6.5); Hematocrit 35.3 % (37.0-47.0); Hemoglobin 12.3 g/dL (12.0-16.0); Mean Corp Hgb Conc. 34.8 g/dL (33.0-37.0); Mean Corpuscular Hgb 34.4 pg (27.0-31.0); Mean Corpuscular Volume 98.6 fL (81.0-99.0); Mean Platelet Volume 9.8 fL (7.4-10.4); Nucleated Red Blood Cells % 0 %; Platelet Count 91 10^3/uL (130-400); Red Blood Cell Count 3.58 10^6/uL (4.20-5.40); White Blood Cell Count 2.3 10^3/uL (4.8-10.8)
[2025-02-13 13:11] LABS: ALT (SGPT) 85 U/L (0-35); AST (SGOT) 60 U/L (14-36); Albumin 4.1 g/dl (3.5-5.0); Alkaline Phosphatase 63 U/L (38-126); Blood Urea Nitrogen 18 mg/dl (7-17); Calcium 9.5 mg/dl (8.4-10.2); Carbon Dioxide 31 mmol/L (22-30); Chloride 102 mmol/L (98-107); Glucose 75 mg/dl (70-99); Potassium 3.9 mmol/L (3.5-5.1); Sodium 140 mmol/L (135-145); Total Bilirubin 1.2 mg/dl (0.2-1.3); Total Protein 5.9 g/dl (6.3-8.2); Uric Acid 3.4 mg/dl (2.5-6.2); eGFR > 60.00
== END ==
LOC: HWLAB 10:28
PROVIDERS: ATTENDING PHYSICIAN Internal Medicine Hematology & Oncology; FAMILY PHYSICIAN Family Medicine
DX: C91.10 Chronic lymphocytic leukemia of B-cell type not having achieved remission (principal); R59.0 Localized enlarged lymph nodes; D69.59 Other secondary thrombocytopenia; D63.8 Anemia in other chronic diseases classified elsewhere; D68.9 Coagulation defect, unspecified; R16.1 Splenomegaly, not elsewhere classified; R11.0 Nausea; D51.8 Other vitamin B12 deficiency anemias; D80.1 Nonfamilial hypogammaglobulinemia
CPT/HCPCS: 36415; 80053; 84550; 85025

== ENCOUNTER → 2025-02-20 10:58 | Outpatient (REF) | payer OTHER, SELFPAY ==
[2025-02-20 16:28] LABS: ALT (SGPT) 76 U/L (0-35); AST (SGOT) 47 U/L (14-36); Albumin 4.7 g/dl (3.5-5.0); Alkaline Phosphatase 61 U/L (38-126); Blood Urea Nitrogen 23 mg/dl (7-17); Calcium 9.5 mg/dl (8.4-10.2); Carbon Dioxide 28 mmol/L (22-30); Chloride 102 mmol/L (98-107); Glucose 79 mg/dl (70-99); Potassium 4.2 mmol/L (3.5-5.1); Sodium 143 mmol/L (135-145); Total Bilirubin 1.2 mg/dl (0.2-1.3); Total Protein 6.3 g/dl (6.3-8.2); Uric Acid 3.4 mg/dl (2.5-6.2); eGFR > 60.00
[2025-02-20 17:25] LABS: % Basophils 0.5 % (0-2); % Monocytes 18.8 % (1.7-9.3); % Neutrophils 52.7 % (42.2-75.2); Absolute Lymphocytes 0.6 10^3/uL (1.2-3.4); Absolute Monocytes 0.4 10^3/uL (0.1-0.6); Absolute Neutrophils 1.2 10^3/uL (1.4-6.5); Hematocrit 37.7 % (37.0-47.0); Mean Corp Hgb Conc. 34.5 g/dL (33.0-37.0); Mean Corpuscular Hgb 33.8 pg (27.0-31.0); Mean Corpuscular Volume 97.9 fL (81.0-99.0); Mean Platelet Volume 10.9 fL (7.4-10.4); Nucleated Red Blood Cells % 0 %; Platelet Count 52 10^3/uL (130-400); Red Blood Cell Count 3.85 10^6/uL (4.20-5.40); White Blood Cell Count 2.2 10^3/uL (4.8-10.8)
== END ==
LOC: HWLAB 10:58
PROVIDERS: ATTENDING PHYSICIAN Internal Medicine Hematology & Oncology; FAMILY PHYSICIAN Family Medicine
DX: C91.10 Chronic lymphocytic leukemia of B-cell type not having achieved remission (principal)
CPT/HCPCS: 36415; 80053; 84550; 85025

== ENCOUNTER → 2025-02-27 10:12 | Outpatient (REF) | payer OTHER, SELFPAY ==
[2025-02-27 12:28] LABS: % Basophils 0.3 % (0-2); % Eosinophils 0.3 % (0-6); % Lymphocytes 20.8 % (20.5-51.1); % Monocytes 11.2 % (1.7-9.3); % Neutrophils 67.4 % (42.2-75.2); Absolute Lymphocytes 0.6 10^3/uL (1.2-3.4); Absolute Monocytes 0.3 10^3/uL (0.1-0.6); Hematocrit 34.4 % (37.0-47.0); Mean Corp Hgb Conc. 34.9 g/dL (33.0-37.0); Mean Corpuscular Hgb 33.7 pg (27.0-31.0); Mean Corpuscular Volume 96.6 fL (81.0-99.0); Nucleated Red Blood Cells % 0 %; Platelet Count 64 10^3/uL (130-400); Red Blood Cell Count 3.56 10^6/uL (4.20-5.40); Red Cell Dist. Width 12.6 % (11.5-14.5)
[2025-02-27 12:32] LABS: ALT (SGPT) 35 U/L (0-35); AST (SGOT) 31 U/L (14-36); Albumin 3.9 g/dl (3.5-5.0); Alkaline Phosphatase 58 U/L (38-126); Blood Urea Nitrogen 20 mg/dl (7-17); Calcium 9.3 mg/dl (8.4-10.2); Carbon Dioxide 31 mmol/L (22-30); Chloride 103 mmol/L (98-107); Glucose 88 mg/dl (70-99); Potassium 3.9 mmol/L (3.5-5.1); Sodium 142 mmol/L (135-145); Total Bilirubin 1.2 mg/dl (0.2-1.3); Total Protein 5.7 g/dl (6.3-8.2); Uric Acid 3.2 mg/dl (2.5-6.2); eGFR > 60.00
== END ==
LOC: HWLAB 10:12
PROVIDERS: ATTENDING PHYSICIAN Internal Medicine Hematology & Oncology; FAMILY PHYSICIAN Family Medicine
DX: C91.10 Chronic lymphocytic leukemia of B-cell type not having achieved remission (principal); R59.0 Localized enlarged lymph nodes; D69.59 Other secondary thrombocytopenia; D63.8 Anemia in other chronic diseases classified elsewhere; D68.9 Coagulation defect, unspecified; R16.1 Splenomegaly, not elsewhere classified; R11.0 Nausea; D51.8 Other vitamin B12 deficiency anemias; D80.1 Nonfamilial hypogammaglobulinemia
CPT/HCPCS: 36415; 80053; 84550; 85025

== ENCOUNTER → 2025-03-05 09:49 | Outpatient (REF) | payer OTHER, SELFPAY ==
[2025-03-05 11:56] LABS: ALT (SGPT) 33 U/L (0-35); AST (SGOT) 32 U/L (14-36); Albumin 3.9 g/dl (3.5-5.0); Alkaline Phosphatase 58 U/L (38-126); Blood Urea Nitrogen 19 mg/dl (7-17); Calcium 9.3 mg/dl (8.4-10.2); Carbon Dioxide 28 mmol/L (22-30); Chloride 106 mmol/L (98-107); Glucose 97 mg/dl (70-99); Hematocrit 33.7 % (37.0-47.0); Mean Corp Hgb Conc. 35.6 g/dL (33.0-37.0); Mean Corpuscular Hgb 34.2 pg (27.0-31.0); Mean Platelet Volume 9.5 fL (7.4-10.4); Platelet Count 78 10^3/uL (130-400); Potassium 3.4 mmol/L (3.5-5.1); Red Blood Cell Count 3.51 10^6/uL (4.20-5.40); Sodium 143 mmol/L (135-145); Total Protein 5.6 g/dl (6.3-8.2); Uric Acid 3.7 mg/dl (2.5-6.2); White Blood Cell Count 1.5 10^3/uL (4.8-10.8); eGFR > 60.00
[2025-03-05 14:12] LABS: Absolute Neutrophils -Man Diff 0.7 10^3/uL (1.4-6.5); Band Neutrophils 0 % (0-3); Lymphocytes 40 % (20-51); Monocytes 7 % (2-9); Platelets Checked Yes; Segmented Neutrophils 53 % (42-75)
[2025-03-05 14:13] LABS: Normal RBC Morphology Yes; Total Cells Counted 100
[2025-03-08 01:54] LABS: Albumin 4.04 g/dL (3.75-5.01); Alpha 1 Globulin 0.23 g/dL (0.19-0.46); Alpha 2 Globulin 0.43 g/dL (0.48-1.05); Free Kappa Light Chains,Quant 9.49 mg/L (3.30-19.40); Free Lambda Light Chains,Quant 7.39 mg/L (5.71-26.30); IgA 16 mg/dL (68-408); IgG 433 mg/dL (768-1632); IgM <10 mg/dL (35-263); Immunofixation Electrophoresis IFE Done; Kappa/Lambda Fr Light Ratio 1.28 (0.26-1.65); Total Protein-Electrophoresis 5.7 g/dL (6.3-8.2)
== END ==
LOC: HWLAB 09:49
PROVIDERS: ATTENDING PHYSICIAN Internal Medicine Hematology & Oncology; FAMILY PHYSICIAN Family Medicine
DX: C91.10 Chronic lymphocytic leukemia of B-cell type not having achieved remission (principal); R59.0 Localized enlarged lymph nodes; D69.59 Other secondary thrombocytopenia; D63.8 Anemia in other chronic diseases classified elsewhere; D68.9 Coagulation defect, unspecified; R16.1 Splenomegaly, not elsewhere classified; R11.0 Nausea; D51.8 Other vitamin B12 deficiency anemias; D80.1 Nonfamilial hypogammaglobulinemia
CPT/HCPCS: 36415; 80053; 82784; 83521; 84155; 84165; 84550; 85025; 86334

== ENCOUNTER → 2025-03-13 09:45 | Outpatient (REF) | payer OTHER, SELFPAY ==
[2025-03-13 11:24] LABS: % Immature Granulocytes 0.4 % (0-0.5); % Lymphocytes 25.2 % (20.5-51.1); % Monocytes 16.4 % (1.7-9.3); Absolute Lymphocytes 0.6 10^3/uL (1.2-3.4); Absolute Monocytes 0.4 10^3/uL (0.1-0.6); Absolute Neutrophils 1.5 10^3/uL (1.4-6.5); Hematocrit 35.3 % (37.0-47.0); Hemoglobin 12.3 g/dL (12.0-16.0); Mean Corp Hgb Conc. 34.8 g/dL (33.0-37.0); Mean Corpuscular Hgb 33.9 pg (27.0-31.0); Mean Corpuscular Volume 97.2 fL (81.0-99.0); Mean Platelet Volume 9.5 fL (7.4-10.4); Nucleated Red Blood Cells % 0 %; Platelet Count 111 10^3/uL (130-400); Red Blood Cell Count 3.63 10^6/uL (4.20-5.40); Red Cell Dist. Width 12.9 % (11.5-14.5); White Blood Cell Count 2.5 10^3/uL (4.8-10.8)
[2025-03-13 12:01] LABS: ALT (SGPT) 41 U/L (0-35); AST (SGOT) 35 U/L (14-36); Albumin 4.5 g/dl (3.5-5.0); Alkaline Phosphatase 57 U/L (38-126); Blood Urea Nitrogen 23 mg/dl (7-17); Calcium 9.1 mg/dl (8.4-10.2); Carbon Dioxide 30 mmol/L (22-30); Chloride 102 mmol/L (98-107); Glucose 83 mg/dl (70-99); Sodium 141 mmol/L (135-145); Total Bilirubin 0.8 mg/dl (0.2-1.3); Total Protein 6.6 g/dl (6.3-8.2); eGFR > 60.00
[2025-03-13 12:44] LABS: Uric Acid 3.7 mg/dl (2.5-6.2)
== END ==
LOC: HWLAB 09:45
PROVIDERS: ATTENDING PHYSICIAN Internal Medicine Hematology & Oncology; FAMILY PHYSICIAN Family Medicine
DX: C91.10 Chronic lymphocytic leukemia of B-cell type not having achieved remission (principal); R59.0 Localized enlarged lymph nodes; D69.59 Other secondary thrombocytopenia; D63.8 Anemia in other chronic diseases classified elsewhere; R16.1 Splenomegaly, not elsewhere classified; R11.0 Nausea; D51.8 Other vitamin B12 deficiency anemias; D80.1 Nonfamilial hypogammaglobulinemia
CPT/HCPCS: 36415; 80053; 84550; 85025

== ENCOUNTER → 2025-03-19 10:04 | Outpatient (REF) | payer OTHER, SELFPAY ==
[2025-03-19 12:09] LABS: % Immature Granulocytes 0.4 % (0-0.5); % Lymphocytes 24.6 % (20.5-51.1); % Monocytes 17.3 % (1.7-9.3); % Neutrophils 57.7 % (42.2-75.2); Absolute Lymphocytes 0.7 10^3/uL (1.2-3.4); Absolute Monocytes 0.5 10^3/uL (0.1-0.6); Absolute Neutrophils 1.6 10^3/uL (1.4-6.5); Hemoglobin 13.4 g/dL (12.0-16.0); Mean Corp Hgb Conc. 35.3 g/dL (33.0-37.0); Mean Corpuscular Hgb 33.9 pg (27.0-31.0); Mean Corpuscular Volume 96.2 fL (81.0-99.0); Mean Platelet Volume 9.8 fL (7.4-10.4); Nucleated Red Blood Cells % 0 %; Platelet Count 98 10^3/uL (130-400); Red Blood Cell Count 3.95 10^6/uL (4.20-5.40); Red Cell Dist. Width 12.8 % (11.5-14.5); White Blood Cell Count 2.8 10^3/uL (4.8-10.8)
[2025-03-19 13:02] LABS: ALT (SGPT) 59 U/L (0-35); AST (SGOT) 47 U/L (14-36); Albumin 4.7 g/dl (3.5-5.0); Alkaline Phosphatase 55 U/L (38-126); Blood Urea Nitrogen 20 mg/dl (7-17); Carbon Dioxide 27 mmol/L (22-30); Chloride 101 mmol/L (98-107); Glucose 79 mg/dl (70-99); Potassium 3.9 mmol/L (3.5-5.1); Sodium 138 mmol/L (135-145); Total Bilirubin 0.9 mg/dl (0.2-1.3); Total Protein 6.6 g/dl (6.3-8.2); eGFR > 60.00
[2025-03-19 13:21] LABS: Uric Acid 3.2 mg/dl (2.5-6.2)
== END ==
LOC: HWLAB 10:04
PROVIDERS: ATTENDING PHYSICIAN Internal Medicine Hematology & Oncology; FAMILY PHYSICIAN Family Medicine
DX: C91.10 Chronic lymphocytic leukemia of B-cell type not having achieved remission (principal); R59.0 Localized enlarged lymph nodes; D69.59 Other secondary thrombocytopenia; D63.8 Anemia in other chronic diseases classified elsewhere; D68.9 Coagulation defect, unspecified; R16.1 Splenomegaly, not elsewhere classified; R11.0 Nausea; D51.8 Other vitamin B12 deficiency anemias; D80.1 Nonfamilial hypogammaglobulinemia
CPT/HCPCS: 36415; 80053; 84550; 85025

== ENCOUNTER → 2025-03-26 11:47 | Outpatient (REF) | payer OTHER, SELFPAY ==
[2025-03-26 16:17] LABS: ALT (SGPT) 52 U/L (0-35); AST (SGOT) 36 U/L (14-36); Albumin 4.5 g/dl (3.5-5.0); Alkaline Phosphatase 61 U/L (38-126); Blood Urea Nitrogen 23 mg/dl (7-17); Calcium 9.1 mg/dl (8.4-10.2); Carbon Dioxide 25 mmol/L (22-30); Chloride 104 mmol/L (98-107); Glucose 101 mg/dl (70-99); Sodium 137 mmol/L (135-145); Total Bilirubin 1.2 mg/dl (0.2-1.3); Total Protein 6.6 g/dl (6.3-8.2); eGFR > 60.00
[2025-03-26 16:19] LABS: % Basophils 0.1 % (0-2); % Immature Granulocytes 0.3 % (0-0.5); % Lymphocytes 7.4 % (20.5-51.1); % Monocytes 9.1 % (1.7-9.3); % Neutrophils 83.1 % (42.2-75.2); Absolute Lymphocytes 0.6 10^3/uL (1.2-3.4); Absolute Monocytes 0.7 10^3/uL (0.1-0.6); Absolute Neutrophils 6.1 10^3/uL (1.4-6.5); Hematocrit 37.6 % (37.0-47.0); Hemoglobin 13.3 g/dL (12.0-16.0); Mean Corp Hgb Conc. 35.4 g/dL (33.0-37.0); Mean Corpuscular Hgb 33.7 pg (27.0-31.0); Mean Corpuscular Volume 95.2 fL (81.0-99.0); Mean Platelet Volume 9.7 fL (7.4-10.4); Nucleated Red Blood Cells % 0 %; Platelet Count 156 10^3/uL (130-400); Red Blood Cell Count 3.95 10^6/uL (4.20-5.40); Red Cell Dist. Width 12.7 % (11.5-14.5); Uric Acid 2.7 mg/dl (2.5-6.2); White Blood Cell Count 7.4 10^3/uL (4.8-10.8)
== END ==
LOC: HWLAB 11:47
PROVIDERS: ATTENDING PHYSICIAN Internal Medicine Hematology & Oncology; FAMILY PHYSICIAN Family Medicine
DX: C91.10 Chronic lymphocytic leukemia of B-cell type not having achieved remission (principal); R59.0 Localized enlarged lymph nodes; D69.59 Other secondary thrombocytopenia; D63.8 Anemia in other chronic diseases classified elsewhere; D68.9 Coagulation defect, unspecified; R16.1 Splenomegaly, not elsewhere classified; R11.0 Nausea; D51.8 Other vitamin B12 deficiency anemias; D80.1 Nonfamilial hypogammaglobulinemia
CPT/HCPCS: 36415; 80053; 84550; 85025

== ENCOUNTER → 2025-04-03 08:26 | Outpatient (REF) | payer OTHER, SELFPAY ==
[2025-04-03 12:22] LABS: % Basophils 0.2 % (0-2); % Immature Granulocytes 0.4 % (0-0.5); % Lymphocytes 11.1 % (20.5-51.1); % Monocytes 14.2 % (1.7-9.3); % Neutrophils 74.1 % (42.2-75.2); Absolute Lymphocytes 0.5 10^3/uL (1.2-3.4); Absolute Monocytes 0.6 10^3/uL (0.1-0.6); Absolute Neutrophils 3.3 10^3/uL (1.4-6.5); Hematocrit 37.5 % (37.0-47.0); Mean Corp Hgb Conc. 34.7 g/dL (33.0-37.0); Mean Corpuscular Hgb 33.7 pg (27.0-31.0); Mean Corpuscular Volume 97.2 fL (81.0-99.0); Mean Platelet Volume 9.6 fL (7.4-10.4); Nucleated Red Blood Cells % 0 %; Platelet Count 116 10^3/uL (130-400); Red Blood Cell Count 3.86 10^6/uL (4.20-5.40); Red Cell Dist. Width 12.9 % (11.5-14.5); White Blood Cell Count 4.5 10^3/uL (4.8-10.8)
[2025-04-03 12:38] LABS: ALT (SGPT) 84 U/L (0-35); AST (SGOT) 55 U/L (14-36); Albumin 4.3 g/dl (3.5-5.0); Alkaline Phosphatase 63 U/L (38-126); Blood Urea Nitrogen 27 mg/dl (7-17); Calcium 9.1 mg/dl (8.4-10.2); Carbon Dioxide 29 mmol/L (22-30); Chloride 107 mmol/L (98-107); Glucose 76 mg/dl (70-99); Potassium 3.8 mmol/L (3.5-5.1); Sodium 142 mmol/L (135-145); Total Bilirubin 1.2 mg/dl (0.2-1.3); Total Protein 6.4 g/dl (6.3-8.2); eGFR > 60.00
[2025-04-06 02:41] LABS: Albumin 4.24 g/dL (3.75-5.01); Alpha 2 Globulin 0.46 g/dL (0.48-1.05); Free Lambda Light Chains,Quant 4.08 mg/L (5.71-26.30); IgA 24 mg/dL (68-408); IgG 718 mg/dL (768-1632); IgM 12 mg/dL (35-263); Immunofixation Electrophoresis IFE Done; Kappa/Lambda Fr Light Ratio 1.84 (0.26-1.65); Total Protein-Electrophoresis 6.2 g/dL (6.3-8.2)
== END ==
LOC: HWLAB 08:26
PROVIDERS: ATTENDING PHYSICIAN Internal Medicine Hematology & Oncology; FAMILY PHYSICIAN Family Medicine
DX: C91.10 Chronic lymphocytic leukemia of B-cell type not having achieved remission (principal); R59.0 Localized enlarged lymph nodes; D69.59 Other secondary thrombocytopenia; D63.8 Anemia in other chronic diseases classified elsewhere; D68.9 Coagulation defect, unspecified; R16.1 Splenomegaly, not elsewhere classified; R11.0 Nausea; D51.8 Other vitamin B12 deficiency anemias; D80.1 Nonfamilial hypogammaglobulinemia
CPT/HCPCS: 36415; 80053; 82784; 83521; 84155; 84165; 84550; 85025; 86334

== ENCOUNTER → 2025-04-10 12:17 | Outpatient (REF) | payer OTHER, SELFPAY ==
[2025-04-10 15:46] LABS: % Basophils 0.7 % (0-2); % Lymphocytes 18.6 % (20.5-51.1); % Monocytes 13.6 % (1.7-9.3); % Neutrophils 66.1 % (42.2-75.2); Absolute Lymphocytes 0.6 10^3/uL (1.2-3.4); Absolute Monocytes 0.4 10^3/uL (0.1-0.6); Hematocrit 34.1 % (37.0-47.0); Hemoglobin 12.2 g/dL (12.0-16.0); Mean Corp Hgb Conc. 35.8 g/dL (33.0-37.0); Mean Corpuscular Hgb 34.7 pg (27.0-31.0); Mean Corpuscular Volume 96.9 fL (81.0-99.0); Nucleated Red Blood Cells % 0 %; Red Blood Cell Count 3.52 10^6/uL (4.20-5.40)
[2025-04-10 15:55] LABS: ALT (SGPT) 66 U/L (0-35); AST (SGOT) 34 U/L (14-36); Albumin 4.2 g/dl (3.5-5.0); Alkaline Phosphatase 61 U/L (38-126); Blood Urea Nitrogen 21 mg/dl (7-17); Calcium 8.6 mg/dl (8.4-10.2); Carbon Dioxide 28 mmol/L (22-30); Chloride 106 mmol/L (98-107); Glucose 91 mg/dl (70-99); Potassium 3.5 mmol/L (3.5-5.1); Sodium 142 mmol/L (135-145); Total Bilirubin 1.3 mg/dl (0.2-1.3); Total Protein 6.1 g/dl (6.3-8.2); Uric Acid 2.7 mg/dl (2.5-6.2); eGFR > 60.00
[2025-04-10 16:02] LABS: Platelet Count 70 10^3/uL (130-400)
== END ==
LOC: HWLAB 12:17
PROVIDERS: ATTENDING PHYSICIAN Internal Medicine Hematology & Oncology; FAMILY PHYSICIAN Family Medicine; REFERRING PHYSICIAN Internal Medicine Cardiovascular Disease
DX: I10 Essential (primary) hypertension (principal); C91.10 Chronic lymphocytic leukemia of B-cell type not having achieved remission; R59.0 Localized enlarged lymph nodes; D69.59 Other secondary thrombocytopenia; D63.8 Anemia in other chronic diseases classified elsewhere; D68.9 Coagulation defect, unspecified; R16.1 Splenomegaly, not elsewhere classified; R11.0 Nausea; D51.8 Other vitamin B12 deficiency anemias; D80.1 Nonfamilial hypogammaglobulinemia
CPT/HCPCS: 36415; 80053; 84550; 85025

== ENCOUNTER → 2025-04-18 11:26 | Outpatient (REF) | payer OTHER, SELFPAY ==
[2025-04-18 15:58] LABS: ALT (SGPT) 42 U/L (0-35); AST (SGOT) 32 U/L (14-36); Albumin 4.2 g/dl (3.5-5.0); Alkaline Phosphatase 59 U/L (38-126); Blood Urea Nitrogen 18 mg/dl (7-17); Calcium 9.1 mg/dl (8.4-10.2); Carbon Dioxide 28 mmol/L (22-30); Chloride 106 mmol/L (98-107); Glucose 115 mg/dl (70-99); Potassium 3.9 mmol/L (3.5-5.1); Sodium 140 mmol/L (135-145); Total Bilirubin 1.2 mg/dl (0.2-1.3); Total Protein 6.2 g/dl (6.3-8.2); Uric Acid 2.7 mg/dl (2.5-6.2); eGFR > 60.00
[2025-04-18 16:14] LABS: % Lymphocytes 47.1 % (20.5-51.1); % Monocytes 17.4 % (1.7-9.3); % Neutrophils 35.5 % (42.2-75.2); Absolute Lymphocytes 0.6 10^3/uL (1.2-3.4); Absolute Monocytes 0.2 10^3/uL (0.1-0.6); Absolute Neutrophils 0.4 10^3/uL (1.4-6.5); Hematocrit 33.5 % (37.0-47.0); Hemoglobin 11.8 g/dL (12.0-16.0); Mean Corp Hgb Conc. 35.2 g/dL (33.0-37.0); Mean Corpuscular Hgb 34.1 pg (27.0-31.0); Mean Corpuscular Volume 96.8 fL (81.0-99.0); Mean Platelet Volume 9.9 fL (7.4-10.4); Nucleated Red Blood Cells % 0 %; Platelet Count 70 10^3/uL (130-400); Red Blood Cell Count 3.46 10^6/uL (4.20-5.40); Red Cell Dist. Width 13.3 % (11.5-14.5); White Blood Cell Count 1.2 10^3/uL (4.8-10.8)
== END ==
LOC: HWLAB 11:26
PROVIDERS: ATTENDING PHYSICIAN Internal Medicine Hematology & Oncology; FAMILY PHYSICIAN Family Medicine
DX: C91.10 Chronic lymphocytic leukemia of B-cell type not having achieved remission (principal); R59.0 Localized enlarged lymph nodes; D69.59 Other secondary thrombocytopenia; D63.8 Anemia in other chronic diseases classified elsewhere; D68.9 Coagulation defect, unspecified; R16.1 Splenomegaly, not elsewhere classified; R11.0 Nausea; D51.8 Other vitamin B12 deficiency anemias; D80.1 Nonfamilial hypogammaglobulinemia
CPT/HCPCS: 36415; 80053; 84550; 85025

== ENCOUNTER → 2025-04-24 11:42 | Outpatient (REF) | payer OTHER, SELFPAY ==
[2025-04-24 15:40] LABS: ALT (SGPT) 30 U/L (0-35); AST (SGOT) 30 U/L (14-36); Albumin 4.1 g/dl (3.5-5.0); Alkaline Phosphatase 101 U/L (38-126); Blood Urea Nitrogen 20 mg/dl (7-17); Calcium 9.3 mg/dl (8.4-10.2); Carbon Dioxide 29 mmol/L (22-30); Chloride 105 mmol/L (98-107); Glucose 100 mg/dl (70-99); Potassium 3.6 mmol/L (3.5-5.1); Sodium 142 mmol/L (135-145); Total Bilirubin 0.8 mg/dl (0.2-1.3); Total Protein 5.9 g/dl (6.3-8.2); Uric Acid 3.5 mg/dl (2.5-6.2); eGFR > 60.00
[2025-04-24 16:01] LABS: Hematocrit 32.5 % (37.0-47.0); Hemoglobin 11.4 g/dL (12.0-16.0); Mean Corp Hgb Conc. 35.1 g/dL (33.0-37.0); Mean Corpuscular Hgb 34.4 pg (27.0-31.0); Mean Corpuscular Volume 98.2 fL (81.0-99.0); Red Blood Cell Count 3.31 10^6/uL (4.20-5.40); Red Cell Dist. Width 14.2 % (11.5-14.5); White Blood Cell Count 13.5 10^3/uL (4.8-10.8)
[2025-04-24 19:16] LABS: Mean Platelet Volume 11.1 fL (7.4-10.4); Platelet Count 56 10^3/uL (130-400)
[2025-04-24 19:18] LABS: Absolute Neutrophils -Man Diff 9.7 10^3/uL (1.4-6.5); Atypical Lymphocytes 2 %; Band Neutrophils 14 % (0-3); Lymphocytes 10 % (20-51); Metamyelocytes 1 % (-); Monocytes 12 % (2-9); Platelets Checked Yes; Promyelocytes 3 % (-); Segmented Neutrophils 58 % (42-75)
[2025-04-24 19:20] LABS: Anisocytosis 1+; Normal RBC Morphology No; Ovalocytes 1+; Polychromasia 1+; Total Cells Counted 100
== END ==
LOC: HWLAB 11:42
PROVIDERS: ATTENDING PHYSICIAN Internal Medicine Hematology & Oncology; FAMILY PHYSICIAN Family Medicine
DX: C91.10 Chronic lymphocytic leukemia of B-cell type not having achieved remission (principal); R59.0 Localized enlarged lymph nodes; D69.59 Other secondary thrombocytopenia; D63.8 Anemia in other chronic diseases classified elsewhere; D68.9 Coagulation defect, unspecified; R16.1 Splenomegaly, not elsewhere classified; R11.0 Nausea; D51.8 Other vitamin B12 deficiency anemias; D80.1 Nonfamilial hypogammaglobulinemia
CPT/HCPCS: 36415; 80053; 84550; 85025

== ENCOUNTER → 2025-04-30 12:30 | Outpatient (REF) | payer OTHER, SELFPAY ==
[2025-04-30 15:37] LABS: % Basophils 0.5 % (0-2); % Immature Granulocytes 0.5 % (0-0.5); % Lymphocytes 14.7 % (20.5-51.1); % Monocytes 8.7 % (1.7-9.3); % Neutrophils 75.6 % (42.2-75.2); Absolute Lymphocytes 0.6 10^3/uL (1.2-3.4); Absolute Monocytes 0.3 10^3/uL (0.1-0.6); Absolute Neutrophils 2.9 10^3/uL (1.4-6.5); Hematocrit 34.1 % (37.0-47.0); Hemoglobin 11.9 g/dL (12.0-16.0); Mean Corp Hgb Conc. 34.9 g/dL (33.0-37.0); Mean Corpuscular Hgb 34.7 pg (27.0-31.0); Mean Corpuscular Volume 99.4 fL (81.0-99.0); Nucleated Red Blood Cells % 0 %; Platelet Count 137 10^3/uL (130-400); Red Blood Cell Count 3.43 10^6/uL (4.20-5.40); Red Cell Dist. Width 14.4 % (11.5-14.5); White Blood Cell Count 3.8 10^3/uL (4.8-10.8)
[2025-04-30 16:23] LABS: ALT (SGPT) 43 U/L (0-35); AST (SGOT) 34 U/L (14-36); Albumin 4.4 g/dl (3.5-5.0); Alkaline Phosphatase 66 U/L (38-126); Blood Urea Nitrogen 20 mg/dl (7-17); Carbon Dioxide 28 mmol/L (22-30); Chloride 108 mmol/L (98-107); Glucose 107 mg/dl (70-99); Sodium 142 mmol/L (135-145); Total Bilirubin 1.1 mg/dl (0.2-1.3); Total Protein 6.2 g/dl (6.3-8.2); eGFR > 60.00
== END ==
LOC: HWLAB 12:30
PROVIDERS: ATTENDING PHYSICIAN Internal Medicine Hematology & Oncology; FAMILY PHYSICIAN Family Medicine
DX: C91.10 Chronic lymphocytic leukemia of B-cell type not having achieved remission (principal); R59.0 Localized enlarged lymph nodes; D69.59 Other secondary thrombocytopenia
CPT/HCPCS: 36415; 80053; 82784; 83521; 84155; 84165; 85025; 86334

== ENCOUNTER → 2025-05-08 10:53 | Outpatient (REF) | payer OTHER, SELFPAY ==
[2025-05-08 13:11] LABS: ALT (SGPT) 48 U/L (0-35); AST (SGOT) 37 U/L (14-36); Albumin 4.4 g/dl (3.5-5.0); Alkaline Phosphatase 58 U/L (38-126); Blood Urea Nitrogen 19 mg/dl (7-17); Calcium 9.1 mg/dl (8.4-10.2); Carbon Dioxide 31 mmol/L (22-30); Chloride 105 mmol/L (98-107); Potassium 3.9 mmol/L (3.5-5.1); Sodium 142 mmol/L (135-145); Total Protein 6.2 g/dl (6.3-8.2); Uric Acid 2.9 mg/dl (2.5-6.2); eGFR > 60.00
[2025-05-08 13:22] LABS: Glucose 70 mg/dl (70-99)
[2025-05-08 14:17] LABS: Hematocrit 33.9 % (37.0-47.0); Hemoglobin 11.7 g/dL (12.0-16.0); Mean Corp Hgb Conc. 34.5 g/dL (33.0-37.0); Mean Corpuscular Volume 102.4 fL (81.0-99.0); Platelet Count 138 10^3/uL (130-400); Red Cell Dist. Width 14.4 % (11.5-14.5)
[2025-05-08 14:18] LABS: Absolute Neutrophils -Man Diff 0.5 10^3/uL (1.4-6.5)
[2025-05-08 14:19] LABS: Normal RBC Morphology Yes; Platelets Checked Yes; Total Cells Counted 100
== END ==
LOC: HWLAB 10:53
PROVIDERS: ATTENDING PHYSICIAN Internal Medicine Hematology & Oncology; FAMILY PHYSICIAN Family Medicine
DX: C91.10 Chronic lymphocytic leukemia of B-cell type not having achieved remission (principal); R59.0 Localized enlarged lymph nodes; D69.59 Other secondary thrombocytopenia; D63.8 Anemia in other chronic diseases classified elsewhere; D68.9 Coagulation defect, unspecified; R16.1 Splenomegaly, not elsewhere classified; R11.0 Nausea; D51.8 Other vitamin B12 deficiency anemias; D80.1 Nonfamilial hypogammaglobulinemia
CPT/HCPCS: 36415; 80053; 84550; 85025

== ENCOUNTER → 2025-05-14 08:35 | Outpatient (REF) | payer OTHER, SELFPAY ==
[2025-05-14 12:21] LABS: Hematocrit 34.7 % (37.0-47.0); Hemoglobin 12.1 g/dL (12.0-16.0); Mean Corp Hgb Conc. 34.9 g/dL (33.0-37.0); Mean Corpuscular Volume 100.3 fL (81.0-99.0); Nucleated Red Blood Cells % 0 %; Platelet Count 64 10^3/uL (130-400); Red Cell Dist. Width 13.7 % (11.5-14.5)
[2025-05-14 14:05] LABS: ALT (SGPT) 65 U/L (0-35); AST (SGOT) 49 U/L (14-36); Albumin 4.3 g/dl (3.5-5.0); Alkaline Phosphatase 50 U/L (38-126); Blood Urea Nitrogen 17 mg/dl (7-17); Calcium 9.2 mg/dl (8.4-10.2); Carbon Dioxide 30 mmol/L (22-30); Chloride 105 mmol/L (98-107); Glucose 80 mg/dl (70-99); Potassium 4.0 mmol/L (3.5-5.1); Sodium 138 mmol/L (135-145); Total Protein 6.2 g/dl (6.3-8.2); Uric Acid 3.0 mg/dl (2.5-6.2); eGFR > 60.00
== END ==
LOC: HWLAB 08:35
PROVIDERS: ATTENDING PHYSICIAN Internal Medicine Hematology & Oncology; FAMILY PHYSICIAN Family Medicine
DX: C91.10 Chronic lymphocytic leukemia of B-cell type not having achieved remission (principal); R59.0 Localized enlarged lymph nodes; D69.59 Other secondary thrombocytopenia; D63.8 Anemia in other chronic diseases classified elsewhere; D68.9 Coagulation defect, unspecified; R16.1 Splenomegaly, not elsewhere classified; R11.0 Nausea; D51.8 Other vitamin B12 deficiency anemias; D80.1 Nonfamilial hypogammaglobulinemia
CPT/HCPCS: 36415; 80053; 84550; 85025

== ENCOUNTER → 2025-05-21 10:40 | Outpatient (REF) | payer OTHER, SELFPAY ==
[2025-05-21 12:48] LABS: Hematocrit 34.4 % (37.0-47.0); Hemoglobin 12.0 g/dL (12.0-16.0); Mean Corp Hgb Conc. 34.9 g/dL (33.0-37.0); Mean Corpuscular Volume 99.1 fL (81.0-99.0); Nucleated Red Blood Cells % 0 %; Platelet Count 56 10^3/uL (130-400); Red Cell Dist. Width 13.3 % (11.5-14.5)
[2025-05-21 13:14] LABS: ALT (SGPT) 64 U/L (0-35); AST (SGOT) 40 U/L (14-36); Albumin 4.3 g/dl (3.5-5.0); Alkaline Phosphatase 59 U/L (38-126); Blood Urea Nitrogen 18 mg/dl (7-17); Calcium 9.1 mg/dl (8.4-10.2); Carbon Dioxide 28 mmol/L (22-30); Chloride 106 mmol/L (98-107); Glucose 94 mg/dl (70-99); Potassium 3.9 mmol/L (3.5-5.1); Sodium 138 mmol/L (135-145); Total Protein 6.1 g/dl (6.3-8.2); Uric Acid 3.0 mg/dl (2.5-6.2); eGFR > 60.00
== END ==
LOC: HWLAB 10:40
PROVIDERS: ATTENDING PHYSICIAN Internal Medicine Hematology & Oncology; FAMILY PHYSICIAN Family Medicine
DX: C91.10 Chronic lymphocytic leukemia of B-cell type not having achieved remission (principal)
CPT/HCPCS: 36415; 80053; 84550; 85025

== ENCOUNTER → 2025-05-28 06:21 | Outpatient (REF) | payer OTHER, SELFPAY ==
[2025-05-28 09:38] LABS: Hematocrit 35.5 % (37.0-47.0); Hemoglobin 12.1 g/dL (12.0-16.0); Mean Corp Hgb Conc. 34.1 g/dL (33.0-37.0); Mean Corpuscular Volume 100.0 fL (81.0-99.0); Nucleated Red Blood Cells % 0 %; Platelet Count 71 10^3/uL (130-400); Red Cell Dist. Width 13.0 % (11.5-14.5)
[2025-05-28 09:39] LABS: ALT (SGPT) 40 U/L (0-35); AST (SGOT) 31 U/L (14-36); Albumin 4.2 g/dl (3.5-5.0); Alkaline Phosphatase 69 U/L (38-126); Blood Urea Nitrogen 18 mg/dl (7-17); Calcium 9.2 mg/dl (8.4-10.2); Carbon Dioxide 31 mmol/L (22-30); Chloride 107 mmol/L (98-107); Glucose 98 mg/dl (70-99); Potassium 4.0 mmol/L (3.5-5.1); Sodium 140 mmol/L (135-145); Total Protein 6.0 g/dl (6.3-8.2); Uric Acid 2.8 mg/dl (2.5-6.2); eGFR > 60.00
[2025-05-31 04:06] LABS: Free Kappa Light Chains,Quant 6.63 mg/L (3.30-19.40); Free Lambda Light Chains,Quant 3.26 mg/L (5.71-26.30); Kappa/Lambda Fr Light Ratio 2.03 (0.26-1.65)
== END ==
LOC: HWLAB 06:21
PROVIDERS: ATTENDING PHYSICIAN Internal Medicine Hematology & Oncology; FAMILY PHYSICIAN Family Medicine
DX: C91.10 Chronic lymphocytic leukemia of B-cell type not having achieved remission (principal); R59.0 Localized enlarged lymph nodes
CPT/HCPCS: 36415; 80053; 82784; 83521; 84550; 85025

== ENCOUNTER → 2025-06-04 06:53 | Outpatient (REF) | payer OTHER, SELFPAY ==
[2025-06-04 10:40] LABS: Hematocrit 34.4 % (37.0-47.0); Hemoglobin 11.8 g/dL (12.0-16.0); Mean Corp Hgb Conc. 34.3 g/dL (33.0-37.0); Mean Corpuscular Volume 99.1 fL (81.0-99.0); Platelet Count 132 10^3/uL (130-400); Red Cell Dist. Width 12.6 % (11.5-14.5)
[2025-06-04 10:48] LABS: ALT (SGPT) 36 U/L (0-35); AST (SGOT) 37 U/L (14-36); Albumin 4.3 g/dl (3.5-5.0); Alkaline Phosphatase 69 U/L (38-126); Blood Urea Nitrogen 15 mg/dl (7-17); Calcium 9.0 mg/dl (8.4-10.2); Carbon Dioxide 30 mmol/L (22-30); Chloride 107 mmol/L (98-107); Glucose 93 mg/dl (70-99); Potassium 4.0 mmol/L (3.5-5.1); Sodium 141 mmol/L (135-145); Total Protein 6.6 g/dl (6.3-8.2); eGFR > 60.00
[2025-06-04 11:07] LABS: Absolute Neutrophils -Man Diff 0.6 10^3/uL (1.4-6.5)
[2025-06-04 11:08] LABS: Normal RBC Morphology Yes; Platelets Checked Yes; Total Cells Counted 100
== END ==
LOC: HWLAB 06:53
PROVIDERS: ATTENDING PHYSICIAN Internal Medicine Hematology & Oncology; FAMILY PHYSICIAN Family Medicine
DX: C91.10 Chronic lymphocytic leukemia of B-cell type not having achieved remission (principal); R59.0 Localized enlarged lymph nodes; D69.59 Other secondary thrombocytopenia; D63.8 Anemia in other chronic diseases classified elsewhere; D68.9 Coagulation defect, unspecified; R16.1 Splenomegaly, not elsewhere classified; R11.0 Nausea; D51.8 Other vitamin B12 deficiency anemias
CPT/HCPCS: 36415; 80053; 85025

== ENCOUNTER → 2025-06-11 08:59 | Outpatient (REF) | payer OTHER, SELFPAY ==
[2025-06-11 12:22] LABS: Hematocrit 37.4 % (37.0-47.0); Hemoglobin 12.7 g/dL (12.0-16.0); Mean Corp Hgb Conc. 34.0 g/dL (33.0-37.0); Mean Corpuscular Volume 100.0 fL (81.0-99.0); Platelet Count 116 10^3/uL (130-400); Red Cell Dist. Width 12.4 % (11.5-14.5)
[2025-06-11 12:36] LABS: ALT (SGPT) 33 U/L (0-35); AST (SGOT) 36 U/L (14-36); Albumin 4.5 g/dl (3.5-5.0); Alkaline Phosphatase 72 U/L (38-126); Blood Urea Nitrogen 19 mg/dl (7-17); Calcium 9.4 mg/dl (8.4-10.2); Carbon Dioxide 30 mmol/L (22-30); Chloride 103 mmol/L (98-107); Glucose 86 mg/dl (70-99); Potassium 3.6 mmol/L (3.5-5.1); Sodium 139 mmol/L (135-145); Total Protein 6.7 g/dl (6.3-8.2); eGFR > 60.00
[2025-06-11 13:23] LABS: Nucleated Red Blood Cells % 0 %
== END ==
LOC: HWLAB 08:59
PROVIDERS: ATTENDING PHYSICIAN Internal Medicine Hematology & Oncology; FAMILY PHYSICIAN Family Medicine
DX: C91.10 Chronic lymphocytic leukemia of B-cell type not having achieved remission (principal); R59.0 Localized enlarged lymph nodes; D69.59 Other secondary thrombocytopenia; D63.8 Anemia in other chronic diseases classified elsewhere; D68.9 Coagulation defect, unspecified; R16.1 Splenomegaly, not elsewhere classified; R11.0 Nausea; D51.8 Other vitamin B12 deficiency anemias; D80.1 Nonfamilial hypogammaglobulinemia
CPT/HCPCS: 36415; 80053; 85025

== ENCOUNTER → 2025-06-18 09:29 | Outpatient (REF) | payer OTHER, SELFPAY ==
[2025-06-18 13:03] LABS: ALT (SGPT) 29 U/L (0-35); AST (SGOT) 31 U/L (14-36); Albumin 4.3 g/dl (3.5-5.0); Alkaline Phosphatase 60 U/L (38-126); Blood Urea Nitrogen 21 mg/dl (7-17); Calcium 9.2 mg/dl (8.4-10.2); Carbon Dioxide 30 mmol/L (22-30); Chloride 103 mmol/L (98-107); Glucose 89 mg/dl (70-99); Potassium 4.3 mmol/L (3.5-5.1); Sodium 139 mmol/L (135-145); Total Protein 6.3 g/dl (6.3-8.2); Uric Acid 3.1 mg/dl (2.5-6.2); eGFR > 60.00
[2025-06-18 13:56] LABS: Hematocrit 35.7 % (37.0-47.0); Hemoglobin 11.9 g/dL (12.0-16.0); Mean Corp Hgb Conc. 33.3 g/dL (33.0-37.0); Mean Corpuscular Volume 100.6 fL (81.0-99.0); Nucleated Red Blood Cells % 0 %; Platelet Count 142 10^3/uL (130-400); Red Cell Dist. Width 12.2 % (11.5-14.5)
== END ==
LOC: HWLAB 09:29
PROVIDERS: ATTENDING PHYSICIAN Internal Medicine Hematology & Oncology; FAMILY PHYSICIAN Family Medicine; REFERRING PHYSICIAN Nurse Practitioner Adult Health
DX: C91.10 Chronic lymphocytic leukemia of B-cell type not having achieved remission (principal); R59.0 Localized enlarged lymph nodes
CPT/HCPCS: 36415; 80053; 84550; 85025

== ENCOUNTER → 2025-06-25 08:46 | Outpatient (REF) | payer OTHER, SELFPAY ==
[2025-06-25 11:59] LABS: Hematocrit 35.4 % (37.0-47.0); Hemoglobin 12.0 g/dL (12.0-16.0); Mean Corp Hgb Conc. 33.9 g/dL (33.0-37.0); Mean Corpuscular Volume 99.4 fL (81.0-99.0); Platelet Count 149 10^3/uL (130-400); Red Cell Dist. Width 12.1 % (11.5-14.5)
[2025-06-25 12:18] LABS: Absolute Neutrophils -Man Diff 0.5 10^3/uL (1.4-6.5); Normal RBC Morphology Yes; Platelets Checked Yes; Total Cells Counted 100
[2025-06-25 12:48] LABS: ALT (SGPT) 36 U/L (0-35); AST (SGOT) 38 U/L (14-36); Albumin 4.4 g/dl (3.5-5.0); Alkaline Phosphatase 65 U/L (38-126); Blood Urea Nitrogen 15 mg/dl (7-17); Calcium 9.3 mg/dl (8.4-10.2); Carbon Dioxide 28 mmol/L (22-30); Chloride 103 mmol/L (98-107); Glucose 82 mg/dl (70-99); LDH 177 U/L (120-246); Potassium 4.1 mmol/L (3.5-5.1); Sodium 139 mmol/L (135-145); Total Protein 6.4 g/dl (6.3-8.2); Uric Acid 3.1 mg/dl (2.5-6.2); eGFR > 60.00
[2025-06-26 16:44] LABS: Free Kappa Light Chains,Quant 5.91 mg/L (3.30-19.40); Free Lambda Light Chains,Quant 3.18 mg/L (5.71-26.30); Kappa/Lambda Fr Light Ratio 1.86 (0.26-1.65)
== END ==
LOC: HWLAB 08:46
PROVIDERS: ATTENDING PHYSICIAN Internal Medicine Hematology & Oncology; FAMILY PHYSICIAN Family Medicine
DX: C91.10 Chronic lymphocytic leukemia of B-cell type not having achieved remission (principal)
CPT/HCPCS: 36415; 80053; 82784; 83521; 83615; 84550; 85025

== ENCOUNTER → 2025-07-02 09:43 | Outpatient (REF) | payer OTHER, SELFPAY ==
[2025-07-02 12:54] LABS: Hematocrit 36.8 % (37.0-47.0); Hemoglobin 12.9 g/dL (12.0-16.0); Mean Corp Hgb Conc. 35.1 g/dL (33.0-37.0); Mean Corpuscular Volume 97.6 fL (81.0-99.0); Nucleated Red Blood Cells % 0 %; Platelet Count 112 10^3/uL (130-400); Red Cell Dist. Width 12.4 % (11.5-14.5)
[2025-07-02 13:35] LABS: ALT (SGPT) 40 U/L (0-35); AST (SGOT) 41 U/L (14-36); Albumin 4.5 g/dl (3.5-5.0); Alkaline Phosphatase 88 U/L (38-126); Blood Urea Nitrogen 22 mg/dl (7-17); Calcium 9.3 mg/dl (8.4-10.2); Carbon Dioxide 27 mmol/L (22-30); Chloride 105 mmol/L (98-107); Glucose 87 mg/dl (70-99); Potassium 4.1 mmol/L (3.5-5.1); Sodium 140 mmol/L (135-145); Total Protein 6.5 g/dl (6.3-8.2); eGFR > 60.00
== END ==
LOC: HWLAB 09:43
PROVIDERS: ATTENDING PHYSICIAN Internal Medicine Hematology & Oncology; FAMILY PHYSICIAN Family Medicine
DX: C91.10 Chronic lymphocytic leukemia of B-cell type not having achieved remission (principal); R59.0 Localized enlarged lymph nodes; D69.59 Other secondary thrombocytopenia; D63.8 Anemia in other chronic diseases classified elsewhere; D68.9 Coagulation defect, unspecified; R16.1 Splenomegaly, not elsewhere classified; R11.0 Nausea; D51.8 Other vitamin B12 deficiency anemias; D80.1 Nonfamilial hypogammaglobulinemia
CPT/HCPCS: 36415; 80053; 85025

== ENCOUNTER → 2025-07-10 12:25 | Outpatient (REF) | payer OTHER, SELFPAY ==
[2025-07-10 16:29] LABS: Hematocrit 34.7 % (37.0-47.0); Hemoglobin 11.9 g/dL (12.0-16.0); Mean Corp Hgb Conc. 34.3 g/dL (33.0-37.0); Mean Corpuscular Volume 99.4 fL (81.0-99.0); Nucleated Red Blood Cells % 0 %; Platelet Count 131 10^3/uL (130-400); Red Cell Dist. Width 12.1 % (11.5-14.5)
[2025-07-10 16:30] LABS: ALT (SGPT) 31 U/L (0-35); AST (SGOT) 30 U/L (14-36); Albumin 4.4 g/dl (3.5-5.0); Alkaline Phosphatase 77 U/L (38-126); Blood Urea Nitrogen 20 mg/dl (7-17); Calcium 9.0 mg/dl (8.4-10.2); Carbon Dioxide 29 mmol/L (22-30); Chloride 105 mmol/L (98-107); Glucose 123 mg/dl (70-99); Potassium 3.9 mmol/L (3.5-5.1); Sodium 139 mmol/L (135-145); Total Protein 6.2 g/dl (6.3-8.2); eGFR > 60.00
== END ==
LOC: HWLAB 12:25
PROVIDERS: ATTENDING PHYSICIAN Internal Medicine Hematology & Oncology; FAMILY PHYSICIAN Family Medicine
DX: C91.10 Chronic lymphocytic leukemia of B-cell type not having achieved remission (principal); R59.0 Localized enlarged lymph nodes
CPT/HCPCS: 36415; 80053; 85025

== ENCOUNTER → 2025-07-16 09:19 | Outpatient (REF) | payer OTHER, SELFPAY ==
[2025-07-16 12:44] LABS: Hematocrit 35.3 % (37.0-47.0); Hemoglobin 12.0 g/dL (12.0-16.0); Mean Corp Hgb Conc. 34.0 g/dL (33.0-37.0); Mean Corpuscular Volume 99.4 fL (81.0-99.0); Platelet Count 138 10^3/uL (130-400); Red Cell Dist. Width 12.0 % (11.5-14.5)
[2025-07-16 12:47] LABS: ALT (SGPT) 25 U/L (0-35); AST (SGOT) 30 U/L (14-36); Albumin 4.5 g/dl (3.5-5.0); Alkaline Phosphatase 67 U/L (38-126); Blood Urea Nitrogen 15 mg/dl (7-17); Calcium 9.6 mg/dl (8.4-10.2); Carbon Dioxide 28 mmol/L (22-30); Chloride 104 mmol/L (98-107); Glucose 92 mg/dl (70-99); Potassium 4.0 mmol/L (3.5-5.1); Sodium 138 mmol/L (135-145); Total Protein 6.4 g/dl (6.3-8.2); eGFR > 60.00
[2025-07-16 13:42] LABS: Nucleated Red Blood Cells % 0 %
== END ==
LOC: HWLAB 09:19
PROVIDERS: ATTENDING PHYSICIAN Internal Medicine Hematology & Oncology; FAMILY PHYSICIAN Family Medicine
DX: C91.10 Chronic lymphocytic leukemia of B-cell type not having achieved remission (principal); R59.0 Localized enlarged lymph nodes; D69.59 Other secondary thrombocytopenia; D63.8 Anemia in other chronic diseases classified elsewhere; D68.9 Coagulation defect, unspecified; R16.1 Splenomegaly, not elsewhere classified; R11.0 Nausea; D51.8 Other vitamin B12 deficiency anemias; D80.1 Nonfamilial hypogammaglobulinemia
CPT/HCPCS: 36415; 80053; 85025

== ENCOUNTER → 2025-07-23 07:21 | Outpatient (REF) | payer OTHER, SELFPAY ==
[2025-07-23 10:57] LABS: ALT (SGPT) 26 U/L (0-35); AST (SGOT) 31 U/L (14-36); Albumin 4.3 g/dl (3.5-5.0); Alkaline Phosphatase 67 U/L (38-126); Blood Urea Nitrogen 15 mg/dl (7-17); Calcium 9.6 mg/dl (8.4-10.2); Carbon Dioxide 31 mmol/L (22-30); Chloride 106 mmol/L (98-107); Glucose 93 mg/dl (70-99); HDL Cholesterol 49 mg/dl; LDH 171 U/L (120-246); LDL Cholesterol, Calculated 71 mg/dl; Potassium 4.2 mmol/L (3.5-5.1); Sodium 141 mmol/L (135-145); Total Protein 6.3 g/dl (6.3-8.2); Uric Acid 5.0 mg/dl (2.5-6.2); Very Low Density Lipoprotein 19 mg/dl (0-30); eGFR > 60.00
[2025-07-23 12:01] LABS: Hematocrit 35.2 % (37.0-47.0); Hemoglobin 12.3 g/dL (12.0-16.0); Mean Corp Hgb Conc. 34.9 g/dL (33.0-37.0); Mean Corpuscular Volume 96.7 fL (81.0-99.0); Platelet Count 127 10^3/uL (130-400); Red Cell Dist. Width 12.1 % (11.5-14.5)
[2025-07-23 12:05] LABS: Glycohemoglobin (HgbA1c) 4.6 % (4.0-5.6)
[2025-07-23 13:50] LABS: Absolute Neutrophils -Man Diff 1.1 10^3/uL (1.4-6.5); Platelets Checked Yes; Total Cells Counted 100
[2025-07-23 13:51] LABS: Normal RBC Morphology Yes
[2025-07-25 06:02] LABS: Free Kappa Light Chains,Quant 5.40 mg/L (3.30-19.40); Free Lambda Light Chains,Quant 3.24 mg/L (5.71-26.30); Kappa/Lambda Fr Light Ratio 1.67 (0.26-1.65)
== END ==
LOC: HWLAB 07:21
PROVIDERS: ATTENDING PHYSICIAN Internal Medicine Hematology & Oncology; FAMILY PHYSICIAN Family Medicine
DX: E03.9 Hypothyroidism, unspecified (principal); R73.01 Impaired fasting glucose; E78.2 Mixed hyperlipidemia; C91.10 Chronic lymphocytic leukemia of B-cell type not having achieved remission; R59.0 Localized enlarged lymph nodes; D69.59 Other secondary thrombocytopenia; D63.8 Anemia in other chronic diseases classified elsewhere; D68.9 Coagulation defect, unspecified; R16.1 Splenomegaly, not elsewhere classified; R11.0 Nausea; D51.8 Other vitamin B12 deficiency anemias; D80.1 Nonfamilial hypogammaglobulinemia
CPT/HCPCS: 36415; 80053; 80061; 82784; 83036; 83521; 83615; 84443; 84550; 85025

== ENCOUNTER → 2025-07-30 10:13 | Outpatient (REF) | payer OTHER, SELFPAY ==
[2025-07-30 11:59] LABS: ALT (SGPT) 43 U/L (0-35); AST (SGOT) 39 U/L (14-36); Albumin 4.5 g/dl (3.5-5.0); Alkaline Phosphatase 65 U/L (38-126); Blood Urea Nitrogen 13 mg/dl (7-17); Calcium 9.7 mg/dl (8.4-10.2); Carbon Dioxide 31 mmol/L (22-30); Chloride 103 mmol/L (98-107); Glucose 63 mg/dl (70-99); Potassium 4.3 mmol/L (3.5-5.1); Sodium 139 mmol/L (135-145); Total Protein 6.5 g/dl (6.3-8.2); eGFR > 60.00
[2025-07-30 12:21] LABS: Hematocrit 37.0 % (37.0-47.0); Hemoglobin 12.7 g/dL (12.0-16.0); Mean Corp Hgb Conc. 34.3 g/dL (33.0-37.0); Mean Corpuscular Volume 98.4 fL (81.0-99.0); Nucleated Red Blood Cells % 0 %; Platelet Count 132 10^3/uL (130-400); Red Cell Dist. Width 12.1 % (11.5-14.5)
== END ==
LOC: HWLAB 10:13
PROVIDERS: ATTENDING PHYSICIAN Internal Medicine Hematology & Oncology; FAMILY PHYSICIAN Family Medicine
DX: C91.10 Chronic lymphocytic leukemia of B-cell type not having achieved remission (principal); R59.0 Localized enlarged lymph nodes; D69.59 Other secondary thrombocytopenia; D63.8 Anemia in other chronic diseases classified elsewhere; D68.9 Coagulation defect, unspecified; R16.1 Splenomegaly, not elsewhere classified; R11.0 Nausea; D51.8 Other vitamin B12 deficiency anemias; D80.1 Nonfamilial hypogammaglobulinemia
CPT/HCPCS: 36415; 80053; 85025

== ENCOUNTER → 2025-08-06 09:55 | Outpatient (REF) | payer OTHER, SELFPAY ==
[2025-08-06 12:18] LABS: Hematocrit 36.3 % (37.0-47.0); Hemoglobin 12.6 g/dL (12.0-16.0); Mean Corp Hgb Conc. 34.7 g/dL (33.0-37.0); Mean Corpuscular Volume 95.0 fL (81.0-99.0); Nucleated Red Blood Cells % 0 %; Platelet Count 141 10^3/uL (130-400); Red Cell Dist. Width 12.0 % (11.5-14.5)
[2025-08-06 12:27] LABS: ALT (SGPT) 27 U/L (0-35); AST (SGOT) 29 U/L (14-36); Albumin 4.6 g/dl (3.5-5.0); Alkaline Phosphatase 64 U/L (38-126); Calcium 9.5 mg/dl (8.4-10.2); Carbon Dioxide 29 mmol/L (22-30); Chloride 103 mmol/L (98-107); Glucose 90 mg/dl (70-99); Potassium 4.0 mmol/L (3.5-5.1); Sodium 139 mmol/L (135-145); Total Protein 6.7 g/dl (6.3-8.2); eGFR > 60.00
[2025-08-06 12:36] LABS: Blood Urea Nitrogen 16 mg/dl (7-17)
== END ==
LOC: HWLAB 09:55
PROVIDERS: ATTENDING PHYSICIAN Internal Medicine Hematology & Oncology; FAMILY PHYSICIAN Family Medicine
DX: C91.10 Chronic lymphocytic leukemia of B-cell type not having achieved remission (principal); R59.0 Localized enlarged lymph nodes; D69.59 Other secondary thrombocytopenia; D63.8 Anemia in other chronic diseases classified elsewhere; D68.9 Coagulation defect, unspecified; R16.1 Splenomegaly, not elsewhere classified; D51.8 Other vitamin B12 deficiency anemias; D80.1 Nonfamilial hypogammaglobulinemia
CPT/HCPCS: 36415; 80053; 85025

== ENCOUNTER → 2025-08-13 09:56 | Outpatient (REF) | payer OTHER, SELFPAY ==
[2025-08-13 12:58] LABS: ALT (SGPT) 25 U/L (0-35); AST (SGOT) 28 U/L (14-36); Albumin 4.5 g/dl (3.5-5.0); Alkaline Phosphatase 59 U/L (38-126); Blood Urea Nitrogen 18 mg/dl (7-17); Calcium 9.5 mg/dl (8.4-10.2); Carbon Dioxide 29 mmol/L (22-30); Chloride 105 mmol/L (98-107); Glucose 66 mg/dl (70-99); Potassium 4.3 mmol/L (3.5-5.1); Sodium 140 mmol/L (135-145); Total Protein 6.3 g/dl (6.3-8.2); eGFR > 60.00
[2025-08-13 13:01] LABS: Hematocrit 36.5 % (37.0-47.0); Hemoglobin 12.6 g/dL (12.0-16.0); Mean Corp Hgb Conc. 34.5 g/dL (33.0-37.0); Mean Corpuscular Volume 96.8 fL (81.0-99.0); Nucleated Red Blood Cells % 0 %; Platelet Count 154 10^3/uL (130-400); Red Cell Dist. Width 12.0 % (11.5-14.5)
== END ==
LOC: HWLAB 09:56
PROVIDERS: ATTENDING PHYSICIAN Internal Medicine Hematology & Oncology; FAMILY PHYSICIAN Family Medicine
DX: C91.10 Chronic lymphocytic leukemia of B-cell type not having achieved remission (principal); R59.0 Localized enlarged lymph nodes; D69.59 Other secondary thrombocytopenia
CPT/HCPCS: 36415; 80053; 85025

== ENCOUNTER → 2025-08-20 10:34 | Outpatient (REF) | payer OTHER, SELFPAY ==
[2025-08-20 12:00] LABS: Hematocrit 34.9 % (37.0-47.0); Hemoglobin 12.1 g/dL (12.0-16.0); Mean Corp Hgb Conc. 34.7 g/dL (33.0-37.0); Mean Corpuscular Volume 95.1 fL (81.0-99.0); Nucleated Red Blood Cells % 0 %; Platelet Count 113 10^3/uL (130-400); Red Cell Dist. Width 12.0 % (11.5-14.5)
[2025-08-20 13:53] LABS: ALT (SGPT) 30 U/L (0-35); AST (SGOT) 33 U/L (14-36); Albumin 4.3 g/dl (3.5-5.0); Alkaline Phosphatase 59 U/L (38-126); Blood Urea Nitrogen 21 mg/dl (7-17); Calcium 9.2 mg/dl (8.4-10.2); Carbon Dioxide 28 mmol/L (22-30); Chloride 106 mmol/L (98-107); Glucose 65 mg/dl (70-99); LDH 221 U/L (120-246); Potassium 4.2 mmol/L (3.5-5.1); Sodium 140 mmol/L (135-145); Total Protein 6.2 g/dl (6.3-8.2); Uric Acid 5.1 mg/dl (2.5-6.2); eGFR > 60.00
[2025-08-23 02:28] LABS: Albumin 3.94 g/dL (3.75-5.01); Free Kappa Light Chains,Quant 5.98 mg/L (3.30-19.40); Free Lambda Light Chains,Quant 3.45 mg/L (5.71-26.30); Immunofixation Electrophoresis IFE Done; Kappa/Lambda Fr Light Ratio 1.73 (0.26-1.65); Total Protein-Electrophoresis 5.9 g/dL (6.3-8.2)
== END ==
LOC: HWLAB 10:34
PROVIDERS: ATTENDING PHYSICIAN Internal Medicine Hematology & Oncology; FAMILY PHYSICIAN Family Medicine
DX: C91.10 Chronic lymphocytic leukemia of B-cell type not having achieved remission (principal); R59.0 Localized enlarged lymph nodes
CPT/HCPCS: 36415; 80053; 82784; 83521; 83615; 84155; 84165; 84550; 85025; 86334

== ENCOUNTER → 2025-08-27 13:15 | Outpatient (REF) | payer OTHER, SELFPAY ==
[2025-08-27 15:51] LABS: ALT (SGPT) 25 U/L (0-35); AST (SGOT) 25 U/L (14-36); Albumin 4.0 g/dl (3.5-5.0); Alkaline Phosphatase 78 U/L (38-126); Blood Urea Nitrogen 18 mg/dl (7-17); Calcium 8.7 mg/dl (8.4-10.2); Carbon Dioxide 28 mmol/L (22-30); Chloride 106 mmol/L (98-107); Glucose 83 mg/dl (70-99); Potassium 3.7 mmol/L (3.5-5.1); Sodium 136 mmol/L (135-145); Total Protein 6.7 g/dl (6.3-8.2); eGFR > 60.00
[2025-08-27 15:57] LABS: Hematocrit 33.1 % (37.0-47.0); Hemoglobin 11.1 g/dL (12.0-16.0); Mean Corp Hgb Conc. 33.5 g/dL (33.0-37.0); Mean Corpuscular Volume 96.8 fL (81.0-99.0); Platelet Count 212 10^3/uL (130-400); Red Cell Dist. Width 12.3 % (11.5-14.5)
[2025-08-27 18:52] LABS: Nucleated Red Blood Cells % 0 %
== END ==
LOC: HWLAB 13:15
PROVIDERS: ATTENDING PHYSICIAN Internal Medicine Hematology & Oncology; FAMILY PHYSICIAN Family Medicine
DX: C91.10 Chronic lymphocytic leukemia of B-cell type not having achieved remission (principal); R59.0 Localized enlarged lymph nodes; D63.8 Anemia in other chronic diseases classified elsewhere; R16.1 Splenomegaly, not elsewhere classified
CPT/HCPCS: 36415; 80053; 85025

== ENCOUNTER → 2025-09-03 09:58 | Outpatient (REF) | payer OTHER, SELFPAY ==
[2025-09-03 12:23] LABS: Hematocrit 35.2 % (37.0-47.0); Hemoglobin 11.9 g/dL (12.0-16.0); Mean Corp Hgb Conc. 33.8 g/dL (33.0-37.0); Mean Corpuscular Volume 95.7 fL (81.0-99.0); Nucleated Red Blood Cells % 0 %; Platelet Count 125 10^3/uL (130-400); Red Cell Dist. Width 12.1 % (11.5-14.5)
[2025-09-03 12:45] LABS: ALT (SGPT) 35 U/L (0-35); AST (SGOT) 39 U/L (14-36); Albumin 4.2 g/dl (3.5-5.0); Alkaline Phosphatase 62 U/L (38-126); Blood Urea Nitrogen 13 mg/dl (7-17); Calcium 9.2 mg/dl (8.4-10.2); Carbon Dioxide 30 mmol/L (22-30); Chloride 105 mmol/L (98-107); Glucose 79 mg/dl (70-99); Potassium 3.5 mmol/L (3.5-5.1); Sodium 137 mmol/L (135-145); Total Protein 6.6 g/dl (6.3-8.2); eGFR > 60.00
== END ==
LOC: HWLAB 09:58
PROVIDERS: ATTENDING PHYSICIAN Internal Medicine Hematology & Oncology
DX: C91.10 Chronic lymphocytic leukemia of B-cell type not having achieved remission (principal); R59.0 Localized enlarged lymph nodes; D69.59 Other secondary thrombocytopenia; D63.8 Anemia in other chronic diseases classified elsewhere; D68.9 Coagulation defect, unspecified; R16.1 Splenomegaly, not elsewhere classified; R11.0 Nausea; D51.8 Other vitamin B12 deficiency anemias; D80.1 Nonfamilial hypogammaglobulinemia
CPT/HCPCS: 36415; 80053; 85025

== ENCOUNTER → 2025-09-10 09:30 | Outpatient (REF) | payer OTHER, SELFPAY ==
[2025-09-10 11:22] LABS: Hematocrit 36.4 % (37.0-47.0); Hemoglobin 12.3 g/dL (12.0-16.0); Mean Corp Hgb Conc. 33.8 g/dL (33.0-37.0); Mean Corpuscular Volume 96.8 fL (81.0-99.0); Nucleated Red Blood Cells % 0 %; Platelet Count 142 10^3/uL (130-400); Red Cell Dist. Width 12.2 % (11.5-14.5)
[2025-09-10 11:25] LABS: Urine Character Clear (Clear)
[2025-09-10 11:36] LABS: ALT (SGPT) 41 U/L (0-35); AST (SGOT) 41 U/L (14-36); Albumin 4.5 g/dl (3.5-5.0); Alkaline Phosphatase 64 U/L (38-126); Blood Urea Nitrogen 17 mg/dl (7-17); Calcium 9.2 mg/dl (8.4-10.2); Carbon Dioxide 30 mmol/L (22-30); Chloride 101 mmol/L (98-107); Glucose 90 mg/dl (70-99); Potassium 4.1 mmol/L (3.5-5.1); Sodium 139 mmol/L (135-145); Total Protein 6.8 g/dl (6.3-8.2); eGFR > 60.00
== END ==
LOC: HWLAB 09:30
PROVIDERS: ATTENDING PHYSICIAN Internal Medicine Hematology & Oncology; FAMILY PHYSICIAN Family Medicine; REFERRING PHYSICIAN Physician Assistant Medical
DX: C91.10 Chronic lymphocytic leukemia of B-cell type not having achieved remission (principal); R31.29 Other microscopic hematuria; R59.0 Localized enlarged lymph nodes; D69.59 Other secondary thrombocytopenia; D63.8 Anemia in other chronic diseases classified elsewhere; D68.9 Coagulation defect, unspecified; R16.1 Splenomegaly, not elsewhere classified; R11.0 Nausea; D51.8 Other vitamin B12 deficiency anemias; D80.1 Nonfamilial hypogammaglobulinemia
CPT/HCPCS: 36415; 80053; 81003; 81015; 85025; 87086; 88112

== ENCOUNTER → 2025-09-17 09:43 | Outpatient (REF) | payer OTHER, SELFPAY ==
[2025-09-17 12:35] LABS: Hematocrit 36.9 % (37.0-47.0); Hemoglobin 12.7 g/dL (12.0-16.0); Mean Corp Hgb Conc. 34.4 g/dL (33.0-37.0); Mean Corpuscular Volume 99.2 fL (81.0-99.0); Nucleated Red Blood Cells % 0 %; Platelet Count 174 10^3/uL (130-400); Red Cell Dist. Width 12.3 % (11.5-14.5)
[2025-09-17 13:08] LABS: ALT (SGPT) 30 U/L (0-35); AST (SGOT) 36 U/L (14-36); Albumin 4.5 g/dl (3.5-5.0); Alkaline Phosphatase 69 U/L (38-126); Blood Urea Nitrogen 15 mg/dl (7-17); Calcium 9.4 mg/dl (8.4-10.2); Carbon Dioxide 31 mmol/L (22-30); Chloride 102 mmol/L (98-107); Glucose 83 mg/dl (70-99); LDH 204 U/L (120-246); Potassium 4.1 mmol/L (3.5-5.1); Sodium 136 mmol/L (135-145); Total Protein 6.9 g/dl (6.3-8.2); Uric Acid 4.9 mg/dl (2.5-6.2); eGFR > 60.00
[2025-09-19 15:57] LABS: Free Kappa Light Chains,Quant 6.24 mg/L (3.30-19.40); Free Lambda Light Chains,Quant 3.14 mg/L (5.71-26.30); Kappa/Lambda Fr Light Ratio 1.99 (0.26-1.65)
== END ==
LOC: HWLAB 09:43
PROVIDERS: ATTENDING PHYSICIAN Internal Medicine Hematology & Oncology; FAMILY PHYSICIAN Family Medicine
DX: C91.10 Chronic lymphocytic leukemia of B-cell type not having achieved remission (principal); R59.0 Localized enlarged lymph nodes; D69.59 Other secondary thrombocytopenia; D63.8 Anemia in other chronic diseases classified elsewhere; D68.9 Coagulation defect, unspecified; R16.1 Splenomegaly, not elsewhere classified; R11.0 Nausea; D51.8 Other vitamin B12 deficiency anemias; D80.1 Nonfamilial hypogammaglobulinemia
CPT/HCPCS: 36415; 80053; 82784; 83521; 83615; 84550; 85025

== ENCOUNTER → 2025-09-24 09:55 | Outpatient (REF) | payer OTHER, SELFPAY ==
[2025-09-24 12:54] LABS: Hematocrit 35.4 % (37.0-47.0); Hemoglobin 12.1 g/dL (12.0-16.0); Mean Corp Hgb Conc. 34.2 g/dL (33.0-37.0); Mean Corpuscular Volume 99.2 fL (81.0-99.0); Nucleated Red Blood Cells % 0 %; Platelet Count 178 10^3/uL (130-400); Red Cell Dist. Width 12.6 % (11.5-14.5)
[2025-09-24 12:56] LABS: ALT (SGPT) 27 U/L (0-35); AST (SGOT) 35 U/L (14-36); Albumin 4.4 g/dl (3.5-5.0); Alkaline Phosphatase 66 U/L (38-126); Blood Urea Nitrogen 16 mg/dl (7-17); Calcium 9.1 mg/dl (8.4-10.2); Carbon Dioxide 27 mmol/L (22-30); Chloride 102 mmol/L (98-107); Glucose 85 mg/dl (70-99); Potassium 4.3 mmol/L (3.5-5.1); Sodium 136 mmol/L (135-145); Total Protein 6.6 g/dl (6.3-8.2); eGFR > 60.00
== END ==
LOC: HWLAB 09:55
PROVIDERS: ATTENDING PHYSICIAN Internal Medicine Hematology & Oncology; FAMILY PHYSICIAN Family Medicine
DX: C91.10 Chronic lymphocytic leukemia of B-cell type not having achieved remission (principal); R59.0 Localized enlarged lymph nodes; D69.59 Other secondary thrombocytopenia; D63.8 Anemia in other chronic diseases classified elsewhere; D68.9 Coagulation defect, unspecified; R16.1 Splenomegaly, not elsewhere classified; R11.0 Nausea; D51.8 Other vitamin B12 deficiency anemias; D80.1 Nonfamilial hypogammaglobulinemia
CPT/HCPCS: 36415; 80053; 85025

== ENCOUNTER → 2025-10-01 14:31 | Outpatient (REF) | payer OTHER, SELFPAY ==
[2025-10-01 15:21] LABS: Hematocrit 36.5 % (37.0-47.0); Hemoglobin 12.2 g/dL (12.0-16.0); Mean Corp Hgb Conc. 33.4 g/dL (33.0-37.0); Mean Corpuscular Volume 99.5 fL (81.0-99.0); Nucleated Red Blood Cells % 0 %; Platelet Count 159 10^3/uL (130-400); Red Cell Dist. Width 12.5 % (11.5-14.5)
[2025-10-01 15:38] LABS: ALT (SGPT) 28 U/L (0-35); AST (SGOT) 34 U/L (14-36); Albumin 4.5 g/dl (3.5-5.0); Alkaline Phosphatase 67 U/L (38-126); Blood Urea Nitrogen 16 mg/dl (7-17); Calcium 9.4 mg/dl (8.4-10.2); Carbon Dioxide 31 mmol/L (22-30); Chloride 103 mmol/L (98-107); Glucose 98 mg/dl (70-99); Potassium 4.1 mmol/L (3.5-5.1); Sodium 138 mmol/L (135-145); Total Protein 6.6 g/dl (6.3-8.2); eGFR > 60.00
== END ==
LOC: REG 14:31
PROVIDERS: ATTENDING PHYSICIAN Internal Medicine Hematology & Oncology; FAMILY PHYSICIAN Family Medicine
DX: C91.10 Chronic lymphocytic leukemia of B-cell type not having achieved remission (principal); R59.0 Localized enlarged lymph nodes; D69.59 Other secondary thrombocytopenia; D63.8 Anemia in other chronic diseases classified elsewhere; D68.9 Coagulation defect, unspecified; R16.1 Splenomegaly, not elsewhere classified; R11.0 Nausea; D51.8 Other vitamin B12 deficiency anemias; D80.1 Nonfamilial hypogammaglobulinemia
CPT/HCPCS: 36415; 80053; 85025

== ENCOUNTER → 2025-10-15 10:51 | Outpatient (REF) | payer OTHER, SELFPAY ==
[2025-10-15 11:55] LABS: Hematocrit 37.5 % (37.0-47.0); Hemoglobin 12.7 g/dL (12.0-16.0); Mean Corp Hgb Conc. 33.9 g/dL (33.0-37.0); Mean Corpuscular Volume 99.5 fL (81.0-99.0); Platelet Count 163 10^3/uL (130-400); Red Cell Dist. Width 12.3 % (11.5-14.5)
[2025-10-15 12:11] LABS: ALT (SGPT) 26 U/L (0-35); AST (SGOT) 35 U/L (14-36); Albumin 4.6 g/dl (3.5-5.0); Alkaline Phosphatase 70 U/L (38-126); Blood Urea Nitrogen 19 mg/dl (7-17); Calcium 9.4 mg/dl (8.4-10.2); Carbon Dioxide 30 mmol/L (22-30); Chloride 103 mmol/L (98-107); Glucose 89 mg/dl (70-99); LDH 257 U/L (120-246); Potassium 4.2 mmol/L (3.5-5.1); Sodium 137 mmol/L (135-145); Total Protein 6.8 g/dl (6.3-8.2); Uric Acid 4.6 mg/dl (2.5-6.2); eGFR > 60.00
[2025-10-15 14:28] LABS: Absolute Neutrophils -Man Diff 1.5 10^3/uL (1.4-6.5)
[2025-10-15 14:29] LABS: Normal RBC Morphology Yes; Platelets Checked Yes; Total Cells Counted 100
[2025-10-17 16:35] LABS: Free Kappa Light Chains,Quant 5.45 mg/L (3.30-19.40); Free Lambda Light Chains,Quant 2.94 mg/L (5.71-26.30); Kappa/Lambda Fr Light Ratio 1.85 (0.26-1.65)
== END ==
LOC: REG 10:51
PROVIDERS: ATTENDING PHYSICIAN Internal Medicine Hematology & Oncology; FAMILY PHYSICIAN Family Medicine
DX: C91.10 Chronic lymphocytic leukemia of B-cell type not having achieved remission (principal); R59.0 Localized enlarged lymph nodes; D69.59 Other secondary thrombocytopenia; D63.8 Anemia in other chronic diseases classified elsewhere; D68.9 Coagulation defect, unspecified; R16.1 Splenomegaly, not elsewhere classified; R11.0 Nausea; D51.8 Other vitamin B12 deficiency anemias; D80.1 Nonfamilial hypogammaglobulinemia
CPT/HCPCS: 36415; 80053; 82784; 83521; 83615; 84550; 85025

== ENCOUNTER → 2025-10-29 09:57 | Outpatient (REF) | payer OTHER, SELFPAY ==
[2025-10-29 13:48] LABS: Hematocrit 33.2 % (37.0-47.0); Hemoglobin 11.6 g/dL (12.0-16.0); Mean Corp Hgb Conc. 34.9 g/dL (33.0-37.0); Mean Corpuscular Volume 97.6 fL (81.0-99.0); Platelet Count 168 10^3/uL (130-400); Red Cell Dist. Width 12.4 % (11.5-14.5)
[2025-10-29 15:45] LABS: Absolute Neutrophils -Man Diff 0.6 10^3/uL (1.4-6.5)
[2025-10-29 15:46] LABS: Normal RBC Morphology Yes; Platelets Checked Yes
[2025-10-29 15:47] LABS: Total Cells Counted 100
== END ==
LOC: HWLAB 09:57
PROVIDERS: ATTENDING PHYSICIAN Nurse Practitioner Adult Health; FAMILY PHYSICIAN Family Medicine
DX: C91.10 Chronic lymphocytic leukemia of B-cell type not having achieved remission (principal); R59.0 Localized enlarged lymph nodes; D69.59 Other secondary thrombocytopenia; D63.8 Anemia in other chronic diseases classified elsewhere; D68.9 Coagulation defect, unspecified; R16.1 Splenomegaly, not elsewhere classified; R11.0 Nausea; D51.8 Other vitamin B12 deficiency anemias; D80.1 Nonfamilial hypogammaglobulinemia
CPT/HCPCS: 36415; 85025